=== PATIENT | male | born 1965 | race Caucasian/White ===

== ENCOUNTER 2021-07-31 09:02 | Outpatient (CLI) | payer BC, SELFPAY ==
[2021-07-31 09:33] LABS: Basophils Percent Auto 0.5 % (0.2-1.2); Eosinophils Absolute Auto 0.1 K/mm3 (0-0.3); Eosinophils Percent Auto 1.8 % (0-4.4); Hematocrit 44.9 % (42.0-52.0); Hemoglobin 15.2 g/dL (14.0-18.0); Immature Granulocyte Absolute 0.05 K/mm3 (0.00-0.031); Immature Granulocyte Percent A 0.7 % (0-0.5); Lymphocytes Absolute Auto 1.45 K/mm3 (0.9-3.2); Lymphocytes Percent Auto 18.9 % (18.3-44.2); Mean Corpuscular HGB Conc 33.9 g/dl (32-36); Mean Corpuscular Hemoglobin 30.8 pg (26-34); Mean Corpuscular Volume 91.1 fl (80-100); Mean Platelet Volume 9.3 fl (7.4-10.4); Monocytes Absolute Auto 0.6 K/mm3 (0.1-0.6); Monocytes Percent Auto 8.3 % (2.6-8.5); Neutrophils Absolute Auto 5.4 K/mm3 (1.3-6.7); Neutrophils Percent Auto 69.8 % (45.5-73.1); Platelet Count Result 261 k/mm3 (150-375); Red Blood Count 4.93 M/mm3 (4.6-6.20); Red Cell Distribution Width 12.2 % (11.5-14.5); White Blood Count 7.7 K/mm3 (4.5-10.0)
[2021-07-31 10:05] LABS: Alanine Aminotransferase 26 U/L (4-50); Albumin Level 4.1 g/dL (3.5-5.1); Alkaline Phosphatase 63 U/L (38-126); Anion Gap 6 mmol/L (8-16); Aspartate Amino Transferase 22 U/L (17-59); Bilirubin,Total 0.5 mg/dL (0.2-1.3); Blood Urea Nitrogen 18 mg/dL (9-20); Calcium 8.9 mg/dL (8.4-10.2); Carbon Dioxide 27 mmol/L (22-30); Chloride 106 mmol/L (98-107); Cholesterol 175 mg/dL (0-200); Estimated Glomerular Filt Rate > 60; Glucose 110 mg/dL (65-110); HDL Direct 34 mg/dL; Potassium 4.4 mmol/L (3.4-5.0); Sodium 139 mmol/L (137-145); Triglycerides 130 mg/dL (<150)
[2021-07-31 10:16] LABS: LDL Cholesterol Direct 95 mg/dL
[2021-07-31 10:37] LABS: Prostate Specific Antigen 0.8 ng/mL (< OR = 4.0)
== END 2021-07-31 09:03 | disposition home or self-care (01) ==
LOC: ANHLAB 09:04
PROVIDERS: PCP Internal Medicine; Visit Provider Nurse Practitioner
DX: Z13.228 Encounter for screening for other metabolic disorders (principal); Z12.5 Encounter for screening for malignant neoplasm of prostate; Z13.220 Encounter for screening for lipoid disorders
CPT/HCPCS: 36415; 80053; 80061; 84153; 85025; G0103

== ENCOUNTER → 2021-08-18 14:02 | Outpatient (CLI) | payer BC, SELFPAY ==
--- NOTE | ~2021-08-18 | US_ITS ---
EXAMINATION: US soft tissue UE LT DATE: 08/18/2021 14:23 INDICATION: Localized swelling, mass and lump posterior to the proximal left ulna of one-month durati on TECHNIQUE: Multiple grayscale and Doppler ultrasound images of the region of concern posterior to the proximal left forearm were obtained. COMPARISON: None FINDINGS: There is a small loculated complex fluid collection along the posterior margin of the proximal ulna w hich measures approximately 3.5 cm medial to lateral and up to 4 mm in maximal thickness although gen erally tender throughout the majority of the collection. This measures up to 2.0 cm proximal to dista l on the single provided sagittal plane image. There is an irregular margin with small hypoechoic reg ions likely representing synovitis within the anechoic fluid. Location and appearance would be most c onsistent with olecranon bursitis. No other abnormal masses identified. IMPRESSION: 1. 3.5 x 0.4 x 2.0 cm loculated complex fluid collection posterior to the olecranon most consistent w ith olecranon bursitis. Reviewed, dictated and finalized at location A. IMPRESSION: 1. 3.5 x 0.4 x 2.0 cm loculated complex fluid collection posterior to the olecr anon most consistent with olecranon bursitis.
== END ==
PROVIDERS: PCP Nurse Practitioner; Visit Provider Nurse Practitioner
DX: R22.9 Localized swelling, mass and lump, unspecified (principal)
CPT/HCPCS: 76882

== ENCOUNTER → 2021-09-30 00:08 | Outpatient (CLI) | payer BC, SELFPAY ==
[2021-09-30 17:30] LABS: SARS-CoV-2 RNA PCR Negative
== END ==
PROVIDERS: PCP Internal Medicine; Visit Provider Internal Medicine Gastroenterology
DX: Z01.812 Encounter for preprocedural laboratory examination (principal); Z20.822 Contact with and (suspected) exposure to COVID-19
CPT/HCPCS: C9803; U0003; U0005

== ENCOUNTER 2021-10-04 00:32 | Day surgery (SDC) | payer BC, SELFPAY ==
[2021-09-20 12:54] VITALS: BMI 34.5
--- NOTE | 2021-10-03 19:10 | PM.HPGS ---
History of Present Illness History of Present Illness Consent: Risks, benefits, and alternatives have been discussed and questions answered. Patient agrees to proceed with procedure. Chief complaint: hx of colon polyps, neoplasm screening Narrative: Sudheer Lorenzana is a 55 year old male with a history of polyps, referred for screening colonoscopy Review of Systems Review of Systems: All systems reviewed & are unremarkable except as noted in HPI and below PMFSH Past Medical History Medical History Body mass index (BMI) 45.0-49.9, adult Cholecystitis Depression GERD (gastroesophageal reflux disease) Headache Insomnia VINCENZO (obstructive sleep apnea) Testicular hypofunction TMJ click Surgical History Surgical History H/O colonoscopy with polypectomy Family History Family History Mother Cerebrovascular accident Father No problems noted. Social History Social History Smoking status: Former smoker Alcohol intake: former Substance use: never Substance use type: does not use Living arrangements: with family Spiritual care concerns: No Meds Home Medications and Allergies Home Medications Medication Instructions Recorded Confirmed Type clonazepam 1 mg tablet 1 mg PO DAILY 08/25/20 10/04/21 History zolpidem 10 mg tablet 10 mg PO .QHS PRN tablet 08/25/20 10/04/21 History duloxetine 20 mg PO DAILY 09/20/21 10/04/21 History Allergies Allergy/AdvReac Type Severity Reaction Status Date / Time No Known Allergies Allergy Verified 10/04/21 08:16 Exam Resp: Auscultation: clear to auscultation bilaterally Cardio: Rate: regular rate Rhythm: regular rhythm GI: GI Palp: Yes Soft to palpation and No Tenderness to palpation present (GI) Assessment and Plan Assessment and plan (1) Screening for colon cancer: Code(s): Z12.11 - Encounter for screening for malignant neoplasm of colon Status: Acute Assessment and Plan: Colonoscopy with possible biopsy or polypectomy or cautery or injection of substances.
[2021-10-04 08:17] VITALS: BP 123/84; PULSE 69; RESP 18; TEMP 36.3; O2SAT 97
[2021-10-04] MEDS: LACTATED RINGERS 1,000 ML 150 ML IV CONT (08:25)
--- NOTE | 2021-10-04 08:40 | WPDANESEPPF ---
Anes - Initial Pre Proc Eval Procedure: Operation Date: 10/04/21 09:30 Proposed Procedures p Screening Colonoscopy - Harpal Olvera MD Date/Time: 10/04/21 08:40 Surgeon: Harpal Olvera MD Pre Op Diagnosis: hx of colon polyps, neoplasm screening Patient Data Age: 55 Gender: M Height: 1.7 m Weight: 106.3 kg Last Vital Signs Temp 36.3 C L 10/04/21 08:17 Pulse 69 10/04/21 08:17 Resp 18 10/04/21 08:17 BP 123/84 10/04/21 08:17 Pulse Ox 97 10/04/21 08:17 Allergies Allergy/AdvReac Type Severity Reaction Status Date / Time No Known Allergies Allergy Verified 10/04/21 08:16 Home Medications Medication Instructions Recorded Confirmed Type clonazepam 1 mg tablet 1 mg PO DAILY 08/25/20 10/04/21 History zolpidem 10 mg tablet 10 mg PO .QHS PRN tablet 08/25/20 10/04/21 History duloxetine 20 mg PO DAILY 09/20/21 10/04/21 History Patient hx anesthesia problems: none Family hx anesthesia problems: none Results Review: All pre-operative results and documents have been reviewed as part of the pre-operative evaluation. [facility] [place] Past Medical History Medical History Body mass index (BMI) 45.0-49.9, adult Cholecystitis Depression GERD (gastroesophageal reflux disease) Headache Insomnia VINCENZO (obstructive sleep apnea) Testicular hypofunction TMJ click Surgical History Surgical History (Updated 10/04/21 @ 08:40 by Brendon Smallwood MD) H/O colonoscopy with polypectomy Family History Family History Mother Cerebrovascular accident Father No problems noted. Social History Social History Smoking status: Former smoker Alcohol intake: former Substance use: never Substance use type: does not use Living arrangements: with family Spiritual care concerns: No Anes - Eval Final PreProcedure Day of Procedure 10/04/21 08:40 Patient weight: obese Heart: regular rate and rhythm Lungs: clear to auscultation Airway: Mallampati scale class II Neurological: alert and oriented Last oral intake: >/= 8 hours ASA classification: III Emergent: no Anesthetic plan: proceed Anesthesia type and monitoring: general GIVS and standard monitoring Results Review: All pre-operative results and documents have been reviewed as part of the pre-operative evaluation. Informed Consent: The patient's anesthetic plan and its attendant risks and benefits were discussed with the patient/family/POA. Questions were solicited and answers provided to the satisfaction of the patient/family/POA.
[2021-10-04] MEDS: SIMETHICONE ORAL SUSPENSION 20 MG/0.3 ML 30 ML BOTTLE 0.6 ML IRRIGATION (09:38)
[2021-10-04 09:47] VITALS: BP 101/67; PULSE 63; RESP 16; O2SAT 96
[2021-10-04 09:57] VITALS: BP 115/78; PULSE 59; RESP 18; O2SAT 96
[2021-10-04 10:07] VITALS: BP 124/78; PULSE 67; RESP 22; O2SAT 98
== END 2021-10-04 10:15 | disposition home or self-care (01) ==
PROVIDERS: PCP Internal Medicine; Visit Provider Internal Medicine Gastroenterology
PROC: 0DJD8ZZ Inspection of Lower Intestinal Tract, Via Natural or Artificial Opening Endoscopic (ICD-10-PCS; CPT 45378; principal; 2021-10-04 09:30)
DX: Z12.11 Encounter for screening for malignant neoplasm of colon (principal); Z86.010 Personal history of colon polyps; F32.9 Major depressive disorder, single episode, unspecified; K21.9 Gastro-esophageal reflux disease without esophagitis; G47.00 Insomnia, unspecified; G47.33 Obstructive sleep apnea (adult) (pediatric); Z87.891 Personal history of nicotine dependence; E66.9 Obesity, unspecified; Z68.36 Body mass index [BMI] 36.0-36.9, adult
CPT/HCPCS: 45378; J2704; J7120

== ENCOUNTER 2022-10-03 08:53 | Outpatient (CLI) | payer BC, SELFPAY ==
[2022-10-03 19:54] LABS: Basophils Percent Auto 0.7 % (0.2-1.2); Eosinophils Absolute Auto 0.2 K/mm3 (0-0.3); Eosinophils Percent Auto 4.1 % (0-4.4); Hematocrit 45.6 % (42.0-52.0); Hemoglobin 15.4 g/dL (14.0-18.0); Immature Granulocyte Absolute 0.03 K/mm3 (0.00-0.031); Immature Granulocyte Percent A 0.5 % (0-0.5); Lymphocytes Absolute Auto 1.77 K/mm3 (0.9-3.2); Lymphocytes Percent Auto 31.8 % (18.3-44.2); Mean Corpuscular HGB Conc 33.8 g/dl (32-36); Mean Corpuscular Hemoglobin 31.6 pg (26-34); Mean Corpuscular Volume 93.6 fl (80-100); Mean Platelet Volume 9.7 fl (7.4-10.4); Monocytes Absolute Auto 0.6 K/mm3 (0.1-0.6); Monocytes Percent Auto 10.4 % (2.6-8.5); Neutrophils Absolute Auto 2.9 K/mm3 (1.3-6.7); Neutrophils Percent Auto 52.5 % (45.5-73.1); Platelet Count Result 260 k/mm3 (150-375); Red Blood Count 4.87 M/mm3 (4.6-6.20); Red Cell Distribution Width 12.7 % (11.5-14.5); White Blood Count 5.6 K/mm3 (4.5-10.0)
[2022-10-03 19:57] LABS: Alanine Aminotransferase 39 U/L (6-50); Albumin Level 4.1 g/dL (3.5-5.1); Alkaline Phosphatase 70 U/L (38-126); Anion Gap 10 mmol/L (8-16); Aspartate Amino Transferase 27 U/L (17-59); Bilirubin,Total 0.4 mg/dL (0.2-1.3); Blood Urea Nitrogen 15 mg/dL (9-20); Calcium 8.8 mg/dL (8.4-10.2); Carbon Dioxide 25 mmol/L (22-30); Chloride 103 mmol/L (98-107); Cholesterol 188 mg/dL (0-200); Estimated Glomerular Filt Rate > 60; Glucose 105 mg/dL (65-110); HDL Direct 36 mg/dL; Potassium 4.2 mmol/L (3.4-5.0); Sodium 138 mmol/L (137-145); Triglycerides 188 mg/dL (<150)
[2022-10-03 20:08] LABS: LDL Cholesterol Direct 114 mg/dL
[2022-10-03 20:10] LABS: Rheumatoid Factor < 8.6 IU/ML (<12)
[2022-10-03 20:25] LABS: Erythrocyte Sedimentation Rate 8 mm/hr (0-20)
[2022-10-08 20:54] LABS: ANA Cascade Screen Negative (Negative)
== END 2022-10-03 08:54 | disposition home or self-care (01) ==
LOC: ANHGOSHLAB 08:54
PROVIDERS: PCP Internal Medicine; Visit Provider Nurse Practitioner
DX: M25.50 Pain in unspecified joint (principal); Z12.5 Encounter for screening for malignant neoplasm of prostate; Z13.220 Encounter for screening for lipoid disorders; Z13.29 Encounter for screening for other suspected endocrine disorder
CPT/HCPCS: 36415; 80053; 80061; 84153; 84443; 85025; 85652; 86038; 86430; G0103

== ENCOUNTER 2022-11-14 08:03 | Outpatient (CLI) | payer BC, SELFPAY ==
--- NOTE | 2022-12-03 13:50 | WPDHOMESLEEP ---
Sleep Study - Home Unattended Date of Study: 11/14/22 Ordering Provider: Nabila Kimball NP Interpreting Provider: Kim Whitney, DO Home Sleep Study Type: Watch PAT Height: 1.7 m Weight: 108.862 kg Body Mass Index: 37.5 Neck Circumference (inches): 17.25 [place]: 19 Reason for Sleep Study Daytime hypersomnia Sleep History The patient is a 57-year-old male with depression, GERD, PTSD, testicular hypofunction, insomnia and history of tobacco use that had a sleep study ordered by his primary care for evaluation of sleep apnea. The patient occasionally awakens from sleep short of breath. He frequently awakens at night with heartburn, belching or cough. He rarely snores loud enough that others complain. He occasionally wakes up gasping for air throughout the night. He rarely has breathing problems at night observed by himself or others. He occasionally sweats excessively at night. He occasionally has heart palpitations or irregular heartbeats during the night. He constantly falls asleep during the day but rarely falls asleep while driving. he constantly experiences loss of muscle tone when extremely emotional. He constantly has trouble at school or work due to sleepiness. He occasionally feels unable to move while waking up or falling asleep. He occasionally experiences vivid dreamlike scenes upon awakening or falling asleep. He constantly feels afraid of going to sleep. He rarely has nightmares. He never remembers his dreams. He constantly has thoughts racing through his mind. He constantly feels sad, depressed and anxious. He constantly has muscular tension. He constantly notices parts of his body jerk. He constantly kicks during the night. He constantly has crawling and aching feelings in his legs and frequently has leg pain during the night. He goes to bed at 10:00 p.m. on both weekdays and weekends. It takes him 1-3 hours to fall asleep. He wakes up 2-3 times throughout the night to urinate. He can take him up to an hour to fall back asleep. He wakes up at 3:30 a.m. on weekdays and at 5:00 a.m. on the weekends. He does not stay in bed after waking up in the morning. He currently lives with his . He does not consume any caffeinated beverages within 2 hours of bedtime. He does not engage in physical exercise before bedtime. He will read and watch television before falling asleep. He denies taking naps in the afternoon or the evening. He drinks 1 cup of caffeinated beverage in the morning. He is a former smoker. He denies alcohol and recreational drug use. [facility] Past Medical History Medical History Body mass index (BMI) 45.0-49.9, adult Cholecystitis Depression GERD (gastroesophageal reflux disease) Headache Insomnia VINCENZO (obstructive sleep apnea) PTSD (post-traumatic stress disorder) Testicular hypofunction TMJ click Surgical History Surgical History H/O colonoscopy with polypectomy Family History Family History Mother Cerebrovascular accident Father No problems noted. Social History Social History Smoking status: Former smoker Alcohol intake: former Substance use: never Substance use type: does not use Spiritual care concerns: No Medications Home Medications Medication Instructions Recorded Confirmed Type bupropion HCl 300 mg 24 hr tablet, 300 mg PO DAILY 09/25/22 History extended release clonazepam 1 mg tablet 1 mg PO DAILY PRN 09/25/22 History lamotrigine 100 mg tablet 100 mg PO DAILY 09/25/22 History naproxen 500 mg tablet 500 mg PO BID 09/25/22 History zolpidem 10 mg tablet 10 mg PO QHS 09/25/22 History Sleep Procedure The sleep study was completed using [employer] a technically adequate device with seven channels: per
[2022-12-03 14:03] VITALS: BMI 37.5
== END 2022-11-15 12:04 | disposition home or self-care (01) ==
LOC: ANHCSM 08:06
PROVIDERS: PCP Internal Medicine; Visit Provider Nurse Practitioner
DX: G47.10 Hypersomnia, unspecified (principal); G47.9 Sleep disorder, unspecified
CPT/HCPCS: 95800

== ENCOUNTER 2023-01-09 08:24 | Outpatient (CLI) | payer BC, SELFPAY ==
--- NOTE | 2023-01-29 12:00 | WPDSLEEPSTUD ---
Sleep Study Date of Study: 01/09/23 Ordering Provider: Nabila Kimball NP Interpreting Physician: Kim Whitney DO Sleep Study Type: Polysomnogram Height: 1.7 m Weight: 240 kg Body Mass Index: 82.8 Neck Circumference (inches): 17.5 [place]: 19 Reason for Sleep Study The patient had an HSAT on 11/14/2022 that showed an AHI of 3.6 and an RDI of 9.6. Recommended in lab study due to discrepancy. Sleep History The patient is a 57-year-old male with depression, GERD, PTSD, testicular hypofunction, insomnia and history of tobacco use that had a sleep study ordered by his primary care for evaluation of sleep apnea.? The patient occasionally awakens from sleep short of breath.? He frequently awakens at night with heartburn, belching or cough.? He rarely snores loud enough that others complain.? He occasionally wakes up gasping for air throughout the night.? He rarely has breathing problems at night observed by himself or others.? He occasionally sweats excessively at night.? He occasionally has heart palpitations or irregular heartbeats during the night.? He constantly falls asleep during the day but rarely falls asleep while driving. he constantly experiences loss of muscle tone when extremely emotional.? He constantly has trouble at school or work due to sleepiness.? He occasionally feels unable to move while waking up or falling asleep.? He occasionally experiences vivid dreamlike scenes upon awakening or falling asleep.? He constantly feels afraid of going to sleep.? He rarely has nightmares.? He never remembers his dreams.? He constantly has thoughts racing through his mind.? He constantly feels sad, depressed and anxious.? He constantly has muscular tension.? He constantly notices parts of his body jerk.? He constantly kicks during the night.? He constantly has crawling and aching feelings in his legs and frequently has leg pain during the night. He goes to bed at 10:00 p.m. on both weekdays and weekends.? It takes him 1-3 hours to fall asleep.? He wakes up 2-3 times throughout the night to urinate.? He can take him up to an hour to fall back asleep.? He wakes up at 3:30 a.m. on weekdays and at 5:00 a.m. on the weekends.? He does not stay in bed after waking up in the morning.? He currently lives with his .? He does not consume any caffeinated beverages within 2 hours of bedtime.? He does not engage in physical exercise before bedtime.? He will read and watch television before falling asleep.? He denies taking naps in the afternoon or the evening.? He drinks 1 cup of caffeinated beverage in the morning.? He is a former smoker.? He denies alcohol and recreational drug use. [facility] Past Medical History Medical History Body mass index (BMI) 45.0-49.9, adult Cholecystitis Depression GERD (gastroesophageal reflux disease) Headache Insomnia VINCENZO (obstructive sleep apnea) PTSD (post-traumatic stress disorder) Testicular hypofunction TMJ click Surgical History Surgical History H/O colonoscopy with polypectomy Family History Family History Mother Cerebrovascular accident Father No problems noted. Social History Social History Smoking status: Former smoker Alcohol intake: former Substance use: never Substance use type: does not use Lack of Transportation: No Lack of Food: Never True Current Housing: I Have Housing Concerned About Future Housing: No Difficulty Paying Gas/Electric Bills: No Difficulty Paying for Meds: No Currently Unemployed: No Education: High School Diploma/GED Difficulty w/ Childcare or Family Care: No Living arrangements: with family Spiritual care concerns: No Medications Home Medications Medication Instructions Recorded Confirmed Type bupr
[2023-01-29 12:15] VITALS: BMI 82.8
== END 2023-01-10 06:19 | disposition home or self-care (01) ==
LOC: ANHCSM 08:25
PROVIDERS: PCP Internal Medicine; Visit Provider Nurse Practitioner
DX: G47.33 Obstructive sleep apnea (adult) (pediatric) (principal); G47.61 Periodic limb movement disorder
CPT/HCPCS: 95810

== ENCOUNTER 2023-05-20 08:08 | Outpatient (CLI) | payer BC, SELFPAY | END 2023-05-20 08:09 | disposition home or self-care (01) | LOC: ANHGOSHPT 08:10 → ANHGOSHLAB 08:16 | PROVIDERS: PCP Internal Medicine; Visit Provider Nurse Practitioner | DX: G47.61 Periodic limb movement disorder (principal) | CPT/HCPCS: 36415; 82728 ==

== ENCOUNTER 2024-08-27 12:14 | Outpatient (CLI) | payer BC, SELFPAY ==
[2024-08-27 12:33] LABS: Basophils Absolute Auto 0.1 K/mm3 (0.0-0.1); Basophils Percent Auto 0.7 % (0.2-1.2); Eosinophils Absolute Auto 0.2 K/mm3 (0-0.3); Eosinophils Percent Auto 3.4 % (0-4.4); Immature Granulocyte Absolute 0.04 K/mm3 (0.00-0.031); Immature Granulocyte Percent A 0.6 % (0-0.5); Lymphocytes Absolute Auto 1.93 K/mm3 (0.9-3.2); Mean Corpuscular HGB Conc 34.8 g/dl (32-36); Mean Corpuscular Hemoglobin 31.9 pg (26-34); Mean Corpuscular Volume 91.8 fl (80-100); Mean Platelet Volume 9.3 fl (7.4-10.4); Monocytes Absolute Auto 0.6 K/mm3 (0.1-0.6); Monocytes Percent Auto 8.4 % (2.6-8.5); Neutrophils Absolute Auto 4.3 K/mm3 (1.3-6.7); Neutrophils Percent Auto 59.9 % (45.5-73.1); Platelet Count Result 266 k/mm3 (150-375); Red Blood Count 5.01 M/mm3 (4.6-6.20); Red Cell Distribution Width 12.2 % (11.5-14.5); White Blood Count 7.1 K/mm3 (4.5-10.0)
[2024-08-27 12:48] LABS: Alanine Aminotransferase 30 U/L (6-50); Albumin Level 4.4 g/dL (3.5-5.1); Alkaline Phosphatase 67 U/L (38-126); Anion Gap 7 mmol/L (4-12); Aspartate Amino Transferase 27 U/L (17-59); Bilirubin,Total 0.7 mg/dL (0.2-1.3); Blood Urea Nitrogen 15 mg/dL (9-20); Calcium 8.8 mg/dL (8.4-10.2); Carbon Dioxide 27 mmol/L (22-30); Chloride 103 mmol/L (98-107); Cholesterol 215 mg/dL (0-200); Estimated Glomerular Filt Rate > 60; Glucose 99 mg/dL (65-110); HDL Direct 42 mg/dL; Potassium 4.2 mmol/L (3.4-5.0); Sodium 137 mmol/L (137-145); Triglycerides 266 mg/dL (<150)
[2024-08-27 12:59] LABS: LDL Cholesterol Direct 118 mg/dL
[2024-08-27 13:17] LABS: Prostate Specific Antigen 1.9 ng/mL (< OR = 4.0)
== END 2024-08-27 12:15 | disposition home or self-care (01) ==
LOC: ANHLAB 12:17
PROVIDERS: PCP Internal Medicine; Visit Provider Nurse Practitioner
DX: Z13.29 Encounter for screening for other suspected endocrine disorder (principal); Z13.220 Encounter for screening for lipoid disorders; Z12.5 Encounter for screening for malignant neoplasm of prostate
CPT/HCPCS: 36415; 80053; 80061; 84153; 85025; G0103

== ENCOUNTER 2025-02-16 13:02 | Outpatient (CLI) | payer BC, SELFPAY ==
--- OUTSIDE RECORDS SUMMARY | 2025-02-16 14:11 | XMS_ITS | Encounter Summary ---
Author Name [facility] Address [address] [place] [address] Care Team Providers Care Director Of Retail Marketing Name Role Phone IDALIA WESTON Primary Care Provider Unavailabl e Insurance Providers: All historical and current Section Date Range: From patient's date of to the date document was created. This section includes the names of all active insurance providers for the patient. Insurance Provider Type of Coverage Plan Name Start of Policy Coverage End of Policy Coverage Group Number Member ID Insurance Provider's Telephone Number Policy Sinclair's Name Patient's Relationship to Policy Sinclair [place] PREFERRED PROVIDER ORGANIZAT [place]ON (PPO) [place] 2022 [id number] [phone] GILBERTKERRIE PATIENT [place] PREFERRED PROVIDER ORGANIZAT ION (PPO) [place] 2022 [id number] [phone] GIL[place]ERT[place]RI[place] PATIENT [place] PREFERRED PROVIDER ORGANIZAT ION (PPO) [place] 2022 [id number] [phone] [place] PATIENT [place] PREFERRED PROVIDER ORGANIZAT ION (PPO) [place] 2022 [id number] [phone] KERRIE HUNT PATIENT [employer]) PRESCRIPT ION REP WAGE 2004 [id number] [phone] KERRIE HUNT PATIENT [employer]) PRESCRIPT ION RX PLAN 2004 [id number] [phone] KERRIE HUNT PATIENT Selected Encounter This section includes the information on record at [place] for the Encounter. Date/Time Encounter Type Encounter Description Reason Provider Source Jun 25, 2024 10:00 AM OFFICE O/P EST MOD 30 MIN [facility] - IND ICD-10-CM F43.12 Post-traumatic stress disorder, chronic MARQUISE WOLF [facility] Encounter Template Text not used by [place] Assessments - Encounter Diagnoses This section includes the primary and secondary diagnoses documented for the Encounter. Date/Time Primary/Secondary Diagnosis Diagnosis Name Provider Source Jun 25, 2024 10:23 AM PRIMARY [facility]-traumatic stress [facility], [facility]ha [facility] Jun 25, 2024 10:23 AM SECONDARY Alcohol abuse, in remission [facility] Jun 25, 2024 10:23 AM SECONDARY Generalized anxiety disorder [facility] Jun 25, 2024 10:23 AM SECONDARY Major depressive disorder, single episode, unspecified [facility] Plan of Treatment: Future Appointments (+ 6 months) and Future Tests (+/- 45 days) The Plan of Treatment section includes future care activities for the patient from all [place] treatmentfacilities. This section includes future appointments and future orders which are active, pending or scheduled. Future Appointments This section includes appointments that were scheduled to occur 6 months from the date of the Encounter, up to a maximum of 20 appointments. The data comes from all [place] treatment facilities. Appointment Date/Time Appointment Type Appointme nt Facility Name Dec 03, 2024 10:00 AM AMBULATORY - PSYCHIATRY [facility] Active, Pending, and Scheduled Orders This section includes a listing of several types of active, pending, and scheduled orders, including clinic medications orders, diagnostic test orders, procedure orders and consult orders; where the start date of the order is 45 days before the date of the Encounter or 45 days after the date of theEncounter. The data comes from all [place] treatment facilities. Test Date/Time Test Type Test Details Facility Name Jun 22, 2024 12:00 AM Laboratory - Chemi stry Order TESTOSTERONE, FREE PANEL RED/NO-GEL SERUM SP [facility] Jun 22, 2024 12:00 AM Laboratory - Chemi stry Order CBC BLOOD [facility] Jun 22, 2024 12:00 AM Laboratory - Chemi stry Order PROST. SPECIFIC AG.(PB-STL) GOLD/RED SST SERUM [facility] Jun 25, 2024 12:00 AM Laboratory - Chemi stry Order URINE DRUG SCREEN (STL) URINE YELLOW SP [facility] Encounter Notes: All associated encounter notes This section contains the clinical notes associated to the Encounter. Date/Time Encounter Note(s) Provider Source Jun 25, 2024 10:12 AM PSYCHIATRY NOTE: LOCAL TITLE: PSYCHIATRY STL STANDARD TITLE: PSYCHIATRY NOTE DATE OF NOTE: JUN 25, 2024@10:12 ENTRY DATE: JUN 25, 2024@10:12:51 AUTHOR: MARQUISE WOLF EXP COSIGNER: URGENCY: STATUS: COMPLETED PSYCHIATRY STL Has ADDENDA [facility] Psychiatry Progress Note - Medication Management JUN 25, 2024 IDENTIFYING INFORMATION Name..................YANI HUNT Age...................58 Sex...................MALE SSN...................[id number] Service Connection.... Service Connected: 50% Rated Disabilities: POST-TRAUMATIC STRESS DISORDER (50% SC) EMMANUEL HUNT is a , unemployed, domiciled, male [employer] with a history most consistent with posttraumatic stress disorder, major depressive disorder, generalized anxiety disorder, and alcohol use disorder (in remission). There has also been past history of opioid dependence, although not opioid use disorder. His history is confounded by a medical history of obesity, GERD, polyarthralgia, low testosterone, and low vitamin D. Previous psychiatric notes, medical notes, and medication history have been reviewed. This appointment was conducted by clinical video telehealth. Telehealth Consent: [place] verbally consented to a clinical video telehealth follow-up appointment. Address: [address] [place] [address] (work) Phone number: Survey: Patient alone Lock: The virtual conference room was locked. 1) Obesity 2) Polyp of colon 3) Primary insomnia 4) Gastroesophageal reflux disease 5) Posttraumatic stress disorder 6) Polyarthralgia 7) Major depressive disorder 8) Generalized anxiety disorder 9) History of alcohol abuse 10) Opioid dependence in remission 11) Exposure to potentially hazardous substance Active Outpatient Medications (including Supplies): Active Outpatient Medications Status 1) FLUTICASONE PROP 50MCG 120D NASAL INHL INSTILL 1 ACTIVE SPRAY IN NOSTRIL(S) ONCE A DAY (MUST BE USED DIRECTED FOR MINIMUM OF 21 DAYS TO PROVIDE ADEQUATE BENEFITS) 2) NAPROXEN 500MG TAB TAKE ONE TABLET BY MOUTH TWICE ACTIVE DAILY NEEDED FOR PAIN AND/OR INFLAMMATION. TAKE WITH FOOD. 3) SILDENAFIL CITRATE 100MG TAB TAKE ONE TABLET BY MOUTH ACTIVE (S) TWO TIMES PER WEEK NEEDED FOR ERECTILE DYSFUNCTION (TAKE 60 MINUTES PRIOR TO SEXUAL ACTIVITY) - LIMIT 6 DOSES PER 30 DAYS 90 DAY SUPPLY 4) TESTOSTERONE 1.62% 20.25MG/PUMP TOP GEL APPLY 2 PUMPS ACTIVE (40.5MG) TO AFFECTED AREA(S) ONCE A DAY FOR LOW TESTOSTERONE APPLY TO CLEAN DRY SKIN OF UPPER ARMS OR UPPER SHOULDER ONLY 5) ZOLPIDEM TARTRATE 12.5MG SA TAB TAKE ONE TABLET BY ACTIVE MOUTH AT BEDTIME NEEDED No medications found. The medication list has been reviewed. Allergies: Patient has answered NKA VITAL SIGNS: Height: 68 in [172.7 cm] (06/22/2024 10:49) Weight: 234.2 lb [106.23 kg] (06/22/2024 11:04) BMI: 35.7 Temperature: 98.3 F [36.8 C] (06/22/2024 11:04) Blood Pressure: 131/86 (06/22/2024 11:04) Pulse: 72 (06/22/2024 11:04) Respirations: 18 (06/22/2024 11:04) Patient Weight History - Last Four 1. 234.2 lbs. / 106.2 kg. on JUN 22, 2024@11:04:33 2. 234.2 lbs. / 106.2 kg. on JUN 22, 2024@10:49:05 3. 246.6 lbs. / 111.9 kg. on DEC 11, 2023@10:10:07 4. 245.5 lbs. / 111.4 kg. on JUL 16, 2023@11:02:53 INTERVAL HISTORY Per last visit: 03/04/2024 Today, insomnia appears unimproved with sustained-release zolpidem. However, he appears to be tolerating it well with no noticeable side effects. Symptoms are also confounded by recent psychosocial stress regarding his [id number]'s health. We will increase zolpidem at this time. He is also considering/discussing Spravato/TMS for depression with his private psychiatrist. He plans to move all of his mental health care to the [place] soon. Compliance: *Zolpidem SR 12.5 mg nightly as needed: most nights Other providers: *Testosterone supplement: no Today: He says that he continues to have the blues at times, depending on psychosocial stressors. However, he feels that they do not stick around as long as before and is able to rationalize through his feelings more effectively. He reports that it has been over 5 months since he has had significant symptoms of depression. He continues to have some anxiety at night, but he has been working through a CBT for insomnia workbook and making use of YouTube resources to improve sleep maintenance. He describes physical aches and pains related to his work, but he denies other major medical changes or new medications. Since returning to work, he has lost about 25 pounds due to the increase in activity. He continues to eat about the same, including some night visits to the kitchen. However, he is awake and alert (i.e. not sleepwalking). He also reminds himself not to eat/snack at night. As previously mentioned, the symptoms do not appear worse since starting zolpidem. 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 He denies alcohol abuse (i.e. usually does not drink, socially/in moderation) and drug use. He continues to chew tobacco (i.e. 3-4 cans a month). Supportive Psychotherapy/Psychoeducation: *N/A Review of systems: Negative except where noted above. PAST PSYCHIATRIC HISTORY Initial consult: 12/18/2017 (Dr. Nava) Transfer of care to this provider: 01/14/2024 Mr. Hunt has described a long history of difficulty controlling anxiety and depression symptoms since around 1992. He has described episodes of persistent low mood lasting up to 2 months, occurring about 4 or 5 times a year, most consistent with major depressive disorder. Along with low mood, he has described anhedonia (e.g. motorcycle riding), hyperphagia, fatigue, poor concentration, and passive suicidal ideation. His taoist beliefs have precluded any preparatory behavior or active suicidal thoughts from developing. With regard to anxiety, he has described difficulty controlling worry regarding various areas of life (e.g. finances, economics, politics, marriage/relationship, children) leading to irritability, insomnia, poor concentration/focus, and restlessness. Overall depression/anxiety symptoms appear to have been exacerbated by his exposure to traumatic/disturbing content while in the [employer]. He has described recurrent symptoms consistent with posttraumatic stress disorder. He said that he was diagnosed around 2014, and he has a 50% service connection for this disorder. He has described intrusive symptoms (e.g. nightmares, intrusive memories triggered by certain smells), avoidance behaviors (e.g. certain movies/smells), mood/cognitive symptoms (e.g. anxiety, anger, distrust of others), and arousal symptoms (e.g. insomnia, hypervigilance). Finally, he has also described issues with alcohol and opiate use in the past. While opioid use followed a work-related injury and did not appear to meet criteria for opioid use disorder (i.e. only opioid dependence leading to increased amount and withdrawal symptoms when he stopped), it does appear that he has met criteria for alcohol use disorder. He described excessive alcohol use between 1982 and 2014 leading to negative emotional changes, relationship stress, and increased use/frequency. However, he denied any past legal, professional, or physical dependence issues (e.g. no withdrawal seizures or delirium tremens). Hospitalizations: *None Suicide attempts: *None Past medications: *Bupropion: Ordered as recently as 2022, up to 150 mg nightly, stopped around 10/2023, no clear benefit *Duloxetine: 20 mg to 60 mg daily ordered between 2017 and 2021 *Trazodone: 100 mg nightly to 300 mg nightly ordered between 2018 *Clonazepam: 0.5 mg nightly to 1 mg twice daily ordered between 2017 and 2021 *Temazepam: 30 mg nightly ordered between 2017 and 2019 Psychology: *Previously in marriage counseling OBJECTIVE FINDINGS Vitals: see above Brief Physical Exam General: No acute distress Cardiopulmonary: Breathing room air with normal effort, no cyanosis appreciated Extremities: No gross abnormalities, moving upper extremities spontaneously Neurological: No gross focal deficits Skin: No obvious rashes or defects on exposed skin Mental Status Exam Appearance: White male, appears stated age, average build, fair hygiene/grooming, short/straight light brown hair (mildly unkempt), wearing appropriate work close and glasses Behavior towards examiner: cooperative, engaged, friendly Eye contact: Good Speech: unremarkable rate, volume, amount, and prosody Psychomotor: No psychomotor retardation/agitation appreciated Mood: Blues [intermittently] Affect: Euthymic/calm, reactive, mood congruent Thought Process: logical, linear, goal-directed Thought Content: Denies suicidal or homicidal ideation; no clear delusions appreciated on exam Perception: Denies active hallucinations; not clearly responding to internal stimuli Cognition: alert and oriented Fund of Knowledge: average Insight: good Judgement: good Labs: No new/relevant labs since last visit 12/11/2023 *CBC normal *Testosterone panel with low bioavailable (85.4), low sex hormone binding globulin (18), low free (43.3), and low total (221) 05/09/2023 *Hemoglobin A1c 5.8 *CMP with hyponatremia (134), low CO2 (19) 12/07/2022 *Prolactin normal *FSH normal *Luteinizing hormone normal 02/06/2022 *TSH normal *Vitamin B12 normal (595) *Vitamin D low (24.9) *Hep C nonreactive *INOCENCIO negative *Rheumatoid factor negative 02/07/2021 *Lipid panel normal Sleep Studies *Reports having 4 sleep studies in the private sector, reportedly with severe insomnia and REM deficiency, denied any clear diagnosis of obstructive sleep apnea *Reports [facility] S[facility] RISK ASSESSMENT Risk Factors for Suicide: *Recent psychosocial stressors *Access to lethal means *Psychological conditions/symptoms *Medical conditions and health-related problems *Preexisting risk factors (e.g. trauma) Protective Factors Against Suicide: *Access to and engagement with health care *Reports motivation for medical treatment *Access to and engagement with mental health care *Reports motivation for mental health treatment *Has meaningful family relationships (i.e. 2 sons) *Has a significant other *Hope for the future *Protective personal traits or beliefs (e.g. help seeking, beliefs against suicide, cognitive flexibility) *Reports taoist or spiritual beliefs/connections ([employer]) *Connections to cultural groups (e.g. ethnic, taoist, community) *Strong desire to live Risk Factors for Homicide: *Access to lethal means *History of violence Protective Factors Against Homicide: *Denial of intention to harm anyone *Absence of violent fantasies *Absence of accepting attitudes toward violence *Lack of preparatory behavior Overall: *Current/imminent risk of harm to self or others is low. *Chronic risk of harm to self or others is intermediate. *The does not meet criteria for involuntary commitment at this time but will benefit from ongoing outpatient mental health treatment. DIAGNOSTIC IMPRESSION DSM-5 Diagnoses: 1. Posttraumatic Stress Disorder 50% SC 2. Major Depressive Disorder, Recurrent, in remission (01/2024) 3. Generalized Anxiety Disorder 4. Alcohol Use Disorder, Mild, in Sustained Remission (2014) Today, he reports intermittent, mild, stress-induced low mood/anxiety that remains less disruptive/severe than in previous years. He is able to work through them and rationalize his feelings more effectively. He has lost about 25 pounds since becoming become more physically active at work. He is working on sleep hygiene, and it does appear that he is getting slightly more sleep than his last visit. He continues to report benefit from zolpidem, with no clear side effects (i.e. kitchen visits at night predate medication; no sleepwalking reported). He is comfortable continuing his current dose while continuing to improve symptoms with behavioral/lifestyle approaches. TREATMENT PLAN Medications: *Zolpidem SA 12.5 mg nightly as needed *Started IR around 2019, trialed up to 10 mg (1.5 hours) *Last increased 02/2024, beneficial (6 hours) Other providers: *Receiving testosterone supplementation, not currently taking Referrals, Labs, and Imaging: *Urine drug screen, reminded *Previously discussed TMS/Spravato Lifestyle: *Taking vitamin D supplement Return to Clinic: *5 months, or sooner if needed REMINDERS Last mental health treatment plan created/renewed..... N/A Last C-SSRS (this provider) .......................... 01/14/2024 Last seen on site.......................... ........... 01/14/2024 PDMP reviewed...................... ................... 03/04/2024 INSTRUCTIONS GIVEN TO PATIENT/FAMILY *Report medication side effects promptly *No alcohol/illicit drug use with medication *Exercise caution with driving/use of machinery *Monitor for sedation with use of the medication and if needed avoid use in situations where decreased level of alertness could potentially be dangerous *Follow up with Primary Care Provider *If symptoms get worse, call clinic or Emergency Room as appropriate *Provided orientation to the inter-disciplinary team and ways to access crisis/emergency care CONSENT We have discussed alternatives to treatment, including no treatment, as well as risks, benefits, side effects. The patient/guardian understood and consented to treatment provided. The patient is aware to call clinic or the emergency room as appropriate if symptoms get worse or if they experience side effects from medications. BILLING Supportive psychotherapy/psychoeducation: N/A Time spent in encounter (chart review, interview, documentation/orders): 24 min /lu/ MARQUISE WOLF Staff Physician / Psychiatrist [facility] Signed: 06/25/2024 10:23 09/21/2024 ADDENDUM STATUS: COMPLETED Refilled the Zolpidem. Reviewd PDMP and previous notes. Providing cross coverage for Dr. Wolf. /lu/ ROBIN FELDMAN Staff PsychiatristFELECIA [facility] [place] Signed: 09/21/2024 20:36 MARQUISE WOLF [facility]
--- OUTSIDE RECORDS SUMMARY | 2025-02-16 14:11 | XMS_ITS ---
Author Name [facility] [facility] [place] [facility] [place] Address [address] [place] [address] Care Team Providers Care Regional Sales Director Name Role Phone IDALIA WESTON Primary Care [...] ION (PPO) [employer] [place] 2022 [id number] [phone] GILBERTKERRIE PATIENT AN[employer]M [employer] [place] PREFERRED PROVIDER ORGANIZAT ION (PPO) [employer] [place] N 2022 [id number] [phone] GILBERTKERRIE PATIENT AN[employer] [employer] [place] PREFERRED PROVIDER ORGANIZAT ION (PPO) [employer] [place] N 2022 [id number] [phone] GILBERTKERRIE PATIENT [employer] [place] PREFERRED PROVIDER ORGANIZAT ION (PPO) [employer] [place] 2022 [id number] [phone] KERRIE HUNT PATIENT [employer] PRESCRIPT ION REP WAGE 2004 [id number] [phone] KERRIE HUNT PATIENT [employer] PRESCRIPT ION RX PLAN 2004 [id number] [id number] [phone] KERRIE HUNT PATIENT Selected Encounter This section includes the [place] on [place] at [place] for [place]. Date/Time Encounter Type Encounter Description Reason Provider Source Mar 04, 2024 10:00 AM OFFICE O/P EST HI 40 [facility] - IND ICD-10-CM F43.12 Post-traumatic stress disorder, chronic LUCIANOMARQUISE Radha [facility] Encounter Template Text not used by [place] Assessments - Encounter Diagnoses This section includes the primary and secondary diagnoses documented for the Encounter. Date/Time Primary/Secondary Diagnosis Diagnosis Name Provider Source Mar 04, 2024 10:37 AM PRIMARY Post-traumatic stress disorder, chronic [facility] Radha [facility] Mar 04, 2024 10:37 AM SECONDARY Alcohol abuse, in remission [facility] Mar 04, 2024 10:37 AM SECONDARY Generalized anxiety disorder [facility] Mar 04, 2024 10:37 AM SECONDARY Major depressive disorder, single episode, unspecified [facility] Plan of Treatment: Future Appointments (+ 6 months) and Future Tests (+/- 45 days) The Plan of Treatment section includes future care activities for the patient from all [place] treatmentfacilities. This section includes future appointments and future orders which are active, pending or scheduled. Future Appointments This section includes appointments that were scheduled to occur 6 months from the date of the Encounter, up to a maximum of 20 appointments. The data comes from all [place] treatment facilities. Appointment Date/Time Appointment Type Appointme nt Facility Name April 02, 2024 11:00 AM [facility] Jun 22, 2024 11:00 AM [facility] - MEDICINE [facility] Jun 25, 2024 10:00 AM AMBULATORY - PSYCHIATRY [facility] Encounter Notes: All associated encounter notes This section contains the clinical notes associated to the Encounter. Date/Time Encounter Note(s) Provider Source Mar 04, 2024 10:26 AM PSYCHIATRY NOTE: LOCAL TITLE: PSYCHIATRY [facility] STANDARD TITLE: PSYCHIATRY NOTE DATE OF NOTE: MAR 04, 2024@10:26 ENTRY DATE: MAR 04, 2024@10:26:52 AUTHOR: MARQUISE WOLF COSIGNER: URGENCY: STATUS: COMPLETED PSYCHIATRY [facility] Has [facility] Psychiatry Progress Note - Medication Management MAR 04, 2024 IDENTIFYING INFORMATION Name..................GILBERTYANISesar ROBISON A Age...................58 Sex...................MALE SSN...................[id number] Service Connection.... Service Connected: 50% Rated Disabilities: POST-TRAUMATIC STRESS DISORDER (50% SC) EMMANUEL HUNT is a , unemployed, domiciled, male [employer] with a history most consistent with posttraumatic stress disorder, major depressive disorder, generalized anxiety disorder, and alcohol use disorder (in remission). There has also been past history of opioid dependence, although not opioid use disorder. His history is confounded by a medical history of obesity, GERD, polyarthralgia, low testosterone, and vitamin D deficiency. Previous psychiatric notes, medical notes, and medication history have been reviewed. This appointment was conducted by clinical video telehealth. Telehealth Consent: verbally consented to a clinical telehealth follow-up appointment. Address: [address] [place] [address] Phone number: Survey: Patient alone Lock: The virtual conference room was locked. Audio only, video not working. 1) Obesity 2) Polyp of colon 3) [...] OF UPPER ARMS OR UPPER SHOULDER ONLY Pending Outpatient Medications Status 1) ZOLPIDEM TARTRATE 12.5MG SA TAB TAKE ONE TABLET BY PENDING MOUTH AT BEDTIME NEEDED 5 Total Medications No medications found. The medication list has been reviewed. Allergies: Patient has answered NKA VITAL SIGNS: Height: 68 in [172.7 cm] (02/06/2022 11:02) Weight: 246.6 lb [111.86 kg] (12/11/2023 10:10) BMI: 37.6 Temperature: 97.6 F [36.4 C] (12/11/2023 10:10) Blood Pressure: 120/79 (12/11/2023 10:10) Pulse: 85 (12/11/2023 10:10) Respirations: 18 (12/11/2023 10:10) Patient Weight History - Last Four 1. 246.6 lbs. / 111.9 kg. on DEC 11, 2023@10:10:07 2. 245.5 lbs. / 111.4 kg. on JUL 16, 2023@11:02:53 3. 253.0 lbs. / 114.8 kg. on JUN 11, 2023@15:10:14 4. 253.0 lbs. / 114.8 kg. on MAY 09, 2023@11:04:11 INTERVAL HISTORY Per last visit: 01/14/2024 Transfer of provider note (i.e. new to this provider), see note for full details. The plan included changing zolpidem to SR 6.25 mg nightly as needed. Patient had discontinued bupropion months prior. Of note, per PDMP, it appears that he was also receiving Spravato. Today: He says that he has been feeling the same after starting the extended release zolpidem. He feels that the instant release benefited him sooner as well. He typically falls asleep between 11 PM and midnight but wakes up around 3 AM. Frequently he will get out of bed for the day at that time. If so, he will then take a 1.5-hour nap around 10:30 AM. He denies any lingering grogginess or side effects from the extended release zolpidem. He does continue to wake up at night due to back/muscle tension/pain. Symptoms are also confounded by recent psychosocial stress regarding his mother-in- law's health. He denies significant/uncontrolled depression currently, however, because he is helping take care of others. He continues to have fatigue and poor motivation for exercise. He tries to eat healthy food, but continues to struggle with his weight. He does not report suicidal ideation, homicidal ideation, or hallucinations. He denies alcohol abuse (i.e. usually does not drink, recently had one half of a napoleon when eating out) and drug use. He continues to chew tobacco (i.e. 3-4 cans a month). Compliance: *Zolpidem SR 6.25 mg nightly as needed: yes Other providers: *Testosterone supplement *He is also discussing Spravato/TMS with his private psychiatrist (note: [place]) Supportive Psychotherapy/Psychoeducation: *N/A Review of systems: Negative [...] poor concentration, and passive suicidal ideation. His judaism beliefs have precluded any preparatory behavior or active suicidal thoughts from developing. With regard to anxiety, he has described difficulty controlling worry regarding various areas of life (e.g. finances, economics, politics, marriage/relationship, children) leading to irritability, insomnia, poor concentration/focus, and restlessness. Overall depression/anxiety symptoms appear to have been exacerbated by his exposure to traumatic/disturbing content while in the [employer]. He has described recurrent symptoms consistent with [...] FINDINGS Vitals: see above Brief Physical Exam *Unable to assess Mental Status Exam Appearance: Unable to assess Behavior towards examiner: cooperative, engaged, friendly Eye contact: Unable to assess Speech: unremarkable rate, volume, amount, and prosody Psychomotor: Unable to assess Mood: The same Affect: Unable to assess Thought Process: logical, linear, goal-directed Thought Content: Does not report suicidal or homicidal ideation; no clear delusions appreciated on exam Perception: Does not describe active hallucinations Cognition: alert and oriented Fund of Knowledge: [...] seeking, beliefs against suicide, cognitive flexibility) *Reports judaism or spiritual beliefs/connections (Buddhism) *Connections to cultural groups (e.g. ethnic, judaism, community) *Strong desire to live Risk Factors [...] Disorder 50% SC 2. Major Depressive Disorder, Recurrent 3. Generalized Anxiety Disorder 4. Alcohol Use Disorder, Mild, in Sustained Remission (2014) Today, insomnia appears unimproved with sustained-release zolpidem. However, he appears to be tolerating it well with no noticeable side effects. Symptoms are also confounded by recent psychosocial stress regarding his [id number]'s health. We will increase zolpidem at this time. He is also considering/discussing Spravato/TMS for depression with his private psychiatrist. [place] TREATMENT PLAN Medications: *Increase zolpidem SA 12.5 mg nightly as needed *Started IR around 2019, trialed up to 10 mg (1.5 hours benefit) Other providers: *Receiving testosterone supplementation Referrals, Labs, and Imaging: *Urine drug screen, reminded *Discussing Spravato/TMS with private psychiatrist Lifestyle: *Taking vitamin D supplement Return to Clinic: *1 month REMINDERS Last mental health treatment plan created/renewed..... [...] spent in encounter (chart review, interview, documentation/orders): 38 min /lu/ MARQUISE WOLF Staff Physician / Psychiatrist [facility] Signed: 03/04/2024 10:37 03/04/2024 ADDENDUM STATUS: COMPLETED Note regarding plan/discussion: We also discussed CBTinsomnia due to his chronic issues and poor response to medications. We will continue to optimize current medications and consider this as an option at future visits. Updated time in chart: *40 minutes /lu/ MARQUISE WOLF Staff Physician / Psychiatrist [facility] Signed: 03/04/2024 10:39 MARQUISE WOLF [facility] Mar 04, 2024 10:24 AM ACCOUNTING OF DISC LOSURES NOTE: LOCAL TITLE: STATE PRESCRIPTION DRUG MONITORING PROGRAM STANDARD TITLE: ACCOUNTING OF DISCLOSURES NOTE DATE OF NOTE: MAR 04, 2024@10:24:49 ENTRY DATE: MAR 04, 2024@10:24:49 AUTHOR: MARQUISE WOLF EXP COSIGNER: URGENCY: STATUS: COMPLETED This PDMP query was submitted by Marquise Wolf MD. The clinical justification for this PDMP query is to review controlled substances prescribed [facility] of [facility], and any additional information that may become available, as an important component of standard clinical care, and in accordance with [facility] policy. Patient information was shared with the PDMP [place]. No prescription(s) for controlled substances outside the [facility] were found in the last 90 days. 02/21/2024 1 01/14/2024 Zolpidem Tart Er 6.25 Mg Tab 30.00 30 Dora Luciano [id number] V a (6475) 1 /[place] 02/20/2024 1 01/02/2024 Testosterone 1.62% Gel Pump 1.00 30 Ke Bau [id number] V a (6475) 2 /[place] 01/22/2024 1 01/02/2024 Androgel 1.62% Gel Pump 1.00 30 Ke Bau [id number] V a (6475) 1 /[place] 01/17/2024 1 01/14/2024 Zolpidem Tart Er 6.25 Mg Tab 30.00 30 Dora Luciano [id number] V a (6475) 0 /[place] 01/09/2024 1 01/02/2024 Androgel 1.62% Gel Pump 1.00 30 Ke Bau [id number] V a (6475) 0 /[place] 12/19/2023 1 12/17/2023 Zolpidem Tartrate 10 Mg Tablet 30.00 30 La Kamryn [id number] V a (6475) 0 /[place] 12/05/2023 1 07/04/2023 Testosterone 1.62% Gel Pump 1.00 30 Ke Bau [id number] V a (6475) 5 /[place] /lu/ MARQUISE WOLF Staff Physician / Psychiatrist [facility] Signed: 03/04/2024 10:26 MARQUISE WOLF [facility]
--- OUTSIDE RECORDS SUMMARY | 2025-02-16 14:11 | XMS_ITS ---
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 Delusions: no Hallucinations: no
--- OUTSIDE RECORDS SUMMARY | 2025-02-16 14:11 | XMS_ITS | CONTINUITY OF CARE DOCUMENT ---
Author Name claudette wilkins Address Unknown Organization [facility] Address [id number] [place] [address] [address] [place] [address] Phone [phone] Care Team Providers Care Telephone Services Sales Representative Name Role Phone BRIGITTE MILTON, MARQUISE Unavailable [phone] INSURANCE PROVIDERS Payer name Policy type / Coverage type Wiley red democrat ID [facility] insurance company [id number]
--- OUTSIDE RECORDS SUMMARY | 2025-02-16 14:11 | XMS_ITS ---
Author Organization [facility] [employer] Address [address] [place] [address] Care Team Providers Care Machine Molder Squeeze Name Role Phone Jorge Mena DO Primary Care Provider Chet Zuniga Unavailable [phone] Allergies No Known Allergies REASON FOR VISIT FOLLOW UP, Depression screening positive Medications Medication SIG (Take, Route, Fr equency, Duration) Notes Start Date End Date Status Zolpidem Tartrate 10 MG 1 tablet at bedt zoe as needed Oral once a day for 30 days 02/15/2025 Active Testosterone 1.62 % Transdermal for 30 Days Active Social History Tobacco Use: Social History Observation Description Date Details (start date - stop date) Unknown Sex Assigned At : Social History Observation Description Sex Assigned At Female Tobacco Control (Standard) Question Answer Notes Tobacco use: Uses tobacco in other forms Vital Signs Blood pressure systolic 122 mm Hg 02/16/20 25 Blood pressure diastolic 87 mm Hg 025 Heart Rate 67 /min 02/15/2025 Height 67.00 in 02/15/2025 Weight 236 lbs 02/15/2025 BMI 36.96 kg/m2 02/15/2025 Height-cm 170.18 cm 02/15/2025 Weight-kg 107.05 kg 02/15/2025 Encounters Encounter Location Date Provider Diagnosis [facility] [employer] [address] [place] [address] 02/15/2025 Chet Howe Major depressive disorder, recurrent, mild F33.0 ; Other insomnia G47.09 ; Nicotine use Z72.0 ; Generalized anxiety disorder F41.1 ; Post-traumatic stress disorder, chronic F43.12 ; Encounter for screening for depression Z13.31 ; Encounter for screening for cardiovascular disorders Z13.6 and Restless legs syndrome G25.81 Assessments Encounter Date Diagnosis (ICD Code) Assessment Notes Treatment Notes Treatment Clinical Notes Section Notes 02/15/2025 Major depressive disorder, recurrent, mild (ICD-10 - F33.0) stable 02/15/2025 Other insomnia (ICD-10 - G47.09) zolpidem 10mg hs prn 02/15/2025 Nicotine use (ICD-10 - Z72.0) 02/15/2025 Generalized anxiety disorder (ICD-10 - F41.1) 02/15/2025 Post-traumatic stress disorder, chronic (ICD-10 - F43.12) stable 02/15/2025 Encounter for screening for depression (ICD-10 - Z13.31) 02/15/2025 Encounter for screening for cardiovascular disorders (ICD-10 - Z13.6) 02/15/2025 Restless legs syndrome (ICD-10 - G25.81) 02/15/2025 Easton Hunt presents with recent sleep disturbances over the past 3 weeks, following episodes of food poisoning and influenza. Insomnia Assessment: Patient reports struggling with sleep for approximately 3 weeks. He describes difficulty falling asleep, with symptoms of tossing, turning, and walking around. The patient is currently taking Ambien and states he cannot sleep without it. Recent stressors include episodes of food poisoning and influenza, which may have disrupted his sleep routine. Patient denies feeling depressed but acknowledges occasional mood fluctuations related to weather changes. Plan: - Refill Ambien prescription for 3 months through [facility] pharmacy - Encourage maintenance of consistent sleep hygiene practices, including regular shower time - Follow up if sleep disturbances persist or worsen the note is transcribed using speech recognition software. It is a reflection of a visit with the patient. It might have some inaccuracy, including medication names and transcribing errors, though efforts have been made to correct them. Plan Of Treatment Medication Medication Name Sig Start Date Stop Date Notes Zolpidem Tartrate 10 MG 1 tablet at bedt zoe as needed Oral once a day for 30 days 02/15/2025 Treatment Notes Assessment Notes Major depressive disorder, recurrent, mi ld stable Other insomnia zolpidem 10mg hs prn Post-traumatic stress disorder, chronic stable Next Appt Details Follow Up: 3 Months, Reason: f/u depression Provider Name:Chet voss, 05/17/2025 03:45:00 PM, [address], [facility] [address], [place], [address], Progress Notes * EMMANUEL HUNT ADOB: [birth year] (59 yo M)Acc No.[id number]:02/15/2025 Patient: EMMANUEL NEAL Provider: JONNATHAN VIGIL :1965 A ge:59 Y S ex:Male Date:02/15/2025 Address:[address] [place] [address], [facility] Pcp:Jorge Mena DO Subjective: * Chief Complaints: * F OLLOW UPDepression screening positive * HPI: D epression Screening: Chief Complaint Struggles with sleep for 3 weeks, request for sleeping medication refill History of Present Illness Emmanuel Hunt presents for medication refill and reports recent sleep disturbances. He has experienced struggles with sleep over the past 3 weeks, despite regular use of Ambien. The patient describes difficulty falling asleep, characterized by tossing, turning, and eventually getting up to walk around. He maintains a regimental shower routine before bed but still experiences sleep onset issues. Mr. Hunt reports recent health challenges, including a bout of food poisoning which he describes as a devastating experience, followed by a case of influenza that he found horrible. These illnesses appear to have occurred prior to the onset of his sleep difficulties. The patient denies feeling depressed, though he acknowledges experiencing occasional low moods, which he attributes to weather changes. He reports no smoking for the past 4 years, following an unspecified incident. Mr. Hunt is seeking a refill of his sleeping medication, indicating continued reliance on pharmacological sleep aids. Social History The patient reports having quit smoking approximately 4 years ago following an unspecified incident. He mentions struggling with sleep in the past 3 weeks, describing difficulty falling asleep and resorting to walking around when unable to sleep. The patient indicates having a regimented routine, including a specific shower time. He denies feeling depressed, though acknowledges occasional mood fluctuations related to weather changes. Medical History The patient has a history of insomnia, for which they have been taking medication. They experienced food poisoning and influenza in the recent past. The patient reports having quit smoking approximately 4 years ago following an unspecified incident. Medications and Supplements - Ambien - Used for sleep - Patient states there's no chance in hell of sleeping without it Review of Systems The patient reports recent episodes of food poisoning and flu, describing them as devastating and horrible experiences. They have been struggling with sleep for the past 3 weeks, mentioning difficulty falling asleep, tossing and turning, and getting up to walk around. The patient denies feeling depressed, though acknowledges occasional momentary feelings attributed to weather changes. DECLAN-7 (2018 Edition) F eeling nervous, anxious, or on edge N early every day N ot being able to stop or control worrying?Several days W orrying too much about different things S everal days T rouble relaxing S everal days F eeling afraid as if something awful might happen N ot at all T otal DECLAN-7 Score 6 I f you checked any problems, how difficult have they made it for you to do your work, take care of things at home, or get along with other people? N ot difficult at all I nterpretation of Total ( 5 to 9) Mild [place]-Suicide Severity Rating Scale: Suicide Risk (CSRS-screener) i n the past one month Have you wished you were or wished you could go to sleep and not wake up? Y es i n the past one month Have you actually had any thoughts of killing yourself? N o D epression screening: PHQ-9 L ittle interest or pleasure in doing things?Several days F eeling down, depressed, or hopeless S everal days T rouble falling or staying asleep, or sleeping too much S everal days F eeling tired or having little energy S everal days P oor appetite or overeating N early every day F eeling bad about yourself or that you are a failure, or have let yourself or your family down N ot at all T rouble concentrating on things, such as reading the newspaper or watching television S everal days M oving or speaking so slowly that other people could have noticed; or the opposite, being so fidgety or restless that you have been moving around a lot more than usual S everal days T houghts that you would be better off or of hurting yourself in some way N ot at all T otal Score 9 I nterpretation M ild Depression Intervention D epression Screening Findings P ositve F ollow-Up for Depression M ental health treatment assessment, Patient follow-up to return when and if necessary S uicide Risk Assessment Performed 0 02/15/2025 A dditional Evaluation for Depression P sychiatric interview and evaluation N shay of the standardized tool used for adult depression screening: P atient Health Questionnaire (PHQ-9) * ROS: P erformance Met: N ormal blood pressure reading documented, follow-up not required ( G8783). * Medical History: * Surgical History: * Hospitalization/Major Diagno stic Procedure: * Social History: T obacco Use: T obacco Control (Standard) T obacco use: U ses tobacco in other forms M igrated Social History: M igrated Social History: Alcohol Intake: Occasional 12/13/2023,Tobacco Years: Never smoker 07/12/2022. M iscellaneous: A dvance Care Planning A re you your own decision-maker Y es D o you have Power of Soaking Room Operator for Health or Medical? Y es D o you have a power of estate attorney for health??Yes D o you have power of estate attorney for Medical ??Yes I f yes, then please bring the POA paperwork so that we can upload it. Y es * Medications: T akingTestosterone 1.62 % Gel Transdermal Zolpidem Tartrate 10 MG Tablet 1 tablet at bedtime as needed Oral once a day Taking Testosterone 1.62 % Gel Transdermal Taking Zolpidem Tartrate 10 MG Tablet 1 tablet at bedtime as needed Oral once a day DiscontinuedSertraline HCl 50 MG Tablet 1 tablet Oral Once a day Medication List reviewed and reconciled with the patientDiscontinued Sertraline HCl 50 MG Tablet 1 tablet Oral Once a day Medication List reviewed and reconciled with the patient * Allergies: N .K.D.A.no[Allergies Verified] Objective: * Vitals: B P:122/87mm Hg, HR:67/min, Wt:236lbs, Wt-k.05 kg, Ht: 67.00 in, Ht-cm: 170.18 cm, BMI:36.96Index, Body Surface Area: 2.25. * Examination: P [...] content: a ppropriate. Thought process: i ntact. G eneral Examination: M ental Status Examination The patient's thought process appears linear and goal-directed, as evidenced by their coherent responses and ability to provide relevant information about their recent experiences and sleep difficulties. Their mood is described as not really feeling depressed, though they acknowledge experiencing momentaries related to the weather. The patient demonstrates intact cognition, as they are able to engage in conversation and provide a clear account of their recent history and current concerns. Their insight appears fair, recognizing the impact of recent illnesses on their well-being and the need for continued sleep medication. Judgment seems appropriate, as evidenced by their adherence to medication regimens and cessation of smoking. Assessment: * Assessment: 1. M ajor depressive disorder, recurrent, mild - F33.0 2 . O ther insomnia - G47.09 3 . N icotine use - Z72.0 4 . G eneralized anxiety disorder - F41.1 5 . P ost-traumatic stress disorder, chronic - F43.12 & #160; 6 . E ncounter for screening for depression - Z13.31 7 . E ncounter for screening for cardiovascular disorders - Z13.6 8 . R estless legs syndrome - G25.81 Plan: * Treatment: 2. O ther insomnia Refill Zolpidem Tartrate Tablet, 10 MG, 1 tablet at bedtime as needed, Oral, once a day, 30 days, 30 Tablet, Refills 3. Notes: zolpidem 10mg hs prn 3. P ost-traumatic stress disorder, chronic Notes: stable 4. O thers Clinical Notes: Emmanuel Hunt presents with recent sleep disturbances over the past 3 weeks, following episodes of food poisoning and influenza. Insomnia Assessment: Patient reports struggling with sleep for approximately 3 weeks. He describes difficulty falling asleep, with symptoms of tossing, turning, and walking around. The patient is currently taking Ambien and states he cannot sleep without it. Recent stressors include episodes of food poisoning and influenza, which may have disrupted his sleep routine. Patient denies feeling depressed but acknowledges occasional mood fluctuations related to weather changes. Plan: - Refill Ambien prescription for 3 months through [facility] pharmacy - Encourage maintenance of consistent sleep hygiene practices, including regular shower time - Follow up if sleep disturbances persist or worsen the note is transcribed using speech recognition software. It is a reflection of a visit with the patient. It might have some inaccuracy, including medication names and transcribing errors, though efforts have been made to correct them. * Procedure Codes: G 9902 Pt scrn tbco and id as [id number] BEHAV ASSMT W/SCORE & DOCD/STAND [id number] NORMAL BP READING DOC F/U NOT [id number] MOST RECENT SYSTOLIC BP < 140MM [id number] CLIN DEPRESSION SCREEN [id number] MOST RECENT DIASTOLIC BP < 90MM HG * Preventive Medicine: Counseling: C ommunication to patient: Counseled the Patient on tobacco use; cessation provided D ate Counseled the Patient on smoking cessation; education provided D ate Counseled the Patient on smoking effects; education provided D ate S moking Cessation counseling done Discuss the importance of quitting smoking. * Follow Up: 3 Months (Reason: f/u depression) * Billing Information: * Visit Code: 05713 OFFICE OUTPATIENT VISIT 25 MINUTES DETAILED HISTORY AND EXAM/MODERATE MEDICAL DECISION MAKING. * Procedure Codes: G9902 Pt scrn tbco and id as user. [id number] BEHAV ASSMT W/SCORE & DOCD/STAND INSTRUMENT. G8783 NORMAL BP READING DOC F/U NOT RQR. G8752 MOST RECENT SYSTOLIC BP < 140MM HG. G8431 CLIN DEPRESSION SCREEN DOC. G8754 MOST RECENT DIASTOLIC BP < 90MM HG. * Sign off status: Completed true * Provider: JONNATHAN VIGIL Date: 0 02/15/2025 Generated for Clark lantigua/Kulwant/Javier on: 0 02/16/2025 02:11 PM CDT History and Physical Notes * HPI (History of Present Illness) Category Sub-Category Detail Notes Category Not es Depression screening PHQ-9 Little inte rest or pleasure in doing things: Several days Feeling down, depressed, or hopeless: Se veral days Trouble falling or staying asleep, or sl eeping too much: Several days Feeling tired or having little energy: S everal days Poor appetite or overeating: Nearly ever y day Feeling bad about yourself o r that [...] some way: Not at all Total Score: 9 Interpretation: Mild Depression Intervention Depression Screening Findings: P ositve Follow-Up for Depression: [facility] treatment assessment, Patient follow-up to return when and if necessary Suicide Risk Assessment Performed: 02/15 Additional Evaluation for Depression: Ps ychiatric interview and evaluation Name of the standardized too l used for adult depression screening:: Patient Health Questionnaire (PHQ-9) Depression Screening DECLAN-7 (2018 Edition) Feelin g nervous, anxious, or on edge: Nearly every day Not being able to stop or control worryedy lantigua: Several days Worrying too much about different things : Several days Trouble relaxing: Several days Feeling afraid as if something awful layo ht happen: Not at all Total DECLAN-7 Score: 6 If you checked any problems, how difficult have they made it for you to do your work, take care of things at home, or get along with other people?: Not difficult at all Interpretation of Total: (5 to 9) Mild [place]-Suicide Severity Rating Scale Suicide Risk (CSRS-screener) in the past one month Have you wished you were or wished you could go to sleep and not wake up?: Yes in the past one month Have y ou actually had any thoughts of killing yourself?: No Examination Category Sub-Category Detail Notes Category Not es Psychiatry Appearance: well-groomed, well-nourished , ... Attitude: cooperative Psychomotor activity: within normal rang [...] no impairment noted Delusions: no Hallucinations: no General Examination Mental Status Examination The patient's thought process appears linear and goal-directed, as evidenced by their coherent responses and ability to provide relevant information about their recent experiences and sleep difficulties. Their mood is described as not really feeling depressed, though they acknowledge experiencing momentaries related to the weather. The patient demonstrates intact cognition, as they are able to engage in conversation and provide a clear account of their recent history and current concerns. Their insight appears fair, recognizing the impact of recent illnesses on their well-being and the need for continued sleep medication. Judgment seems appropriate, as evidenced by their adherence to medication regimens and cessation of smoking.
--- OUTSIDE RECORDS SUMMARY | 2025-02-16 14:11 | XMS_ITS | Clinical Summary ---
Author Organization [facility] Address [address] [place] [address] Care Team Providers Care Hourly Team Members Name Role Phone Geoffrey Reeves Primary Care Provider [phone] Allergies No known active allergies Medications HYDROcodone-acet aminophen 7.5-325 MG/15ML Solution solutionIndicati ons:Acute Pain < 3 Day Supply Take 5-10 mLs by mouth every 4 (four) hours as needed for Pain. Indications : Acute Pain < 3 Day Supply 70 mL 04/16/2021 Active diclofenac EC 75 MG tabletIndication s:Hematoma of neck, initial encounter,Blunt trauma of neck, initial encounter Take 1 tablet (75 mg total) by mouth 2 (two) times daily as needed (Pain. Please take with meals). 30 tablet 04/16/2021 Active Social History Tobacco Use Types Packs/Day Years Used Date Smoking Tobacco: Never Smokeless Tobacco: Never Alcohol Use Standard Drinks/Week Comments Not Currently 0 (1 standard drink = 0.6 oz pur e alcohol) Sex and Gender Information Value Date Recorded Sex Assigned at Not on file Legal Sex Male 7:46 PM CDT Gender Identity Not on file Sexual Orientation Not on file Last Filed Vital Signs Vital Sign Reading Time Taken Comments Blood Pressure 139/86 04/16/2021 12:04 AM CDT Pulse 72 04/16/2021 12:04 AM CDT Temperature 36.6 C (97.9 F) 04/16/2021 12:04 AM CDT Respiratory Rate 16 04/16/2021 12:04 AM CDT Oxygen Saturation 97% 04/16/2021 12:04 AM CDT Inhaled Oxygen Concentration - - Weight 104.1 kg (229 lb 8 oz) 04/16/2021 12:04 A M CDT Height 167.6 cm (5' 6 ) 04/16/2021 12:04 AM CDT Body Mass Index 37.04 04/16/2021 12:04 AM CDT Plan of Treatment Health Maintenance Due Date Last Done Comments Colorectal Cancer Screening Colonoscopy (10 Years) 1965 Annual Physical 1968 Hepatitis C 1983 DTaP, Tdap and Td Vaccines ( 1 - Tdap) 1984 Zoster Vaccines (1 of 2) 2015 COVID-19 Vaccine (2023-2 5 season) 2024 Influenza Adult (#1) 2024 Meningococcal B Vaccine Aged Out No l onger eligible based on patient's age to complete this topic Meningococcal Vaccine Aged Out No geovanni jason eligible based on patient's age to complete this topic Pneumococcal Vaccine: Pediat rics (0 to 5 Years) and At-Risk Patients (6 to 64 Years) Aged Out No longer eligible b ased on patient's age to complete this topic RSV Immunizations Under 20 Months Aged Out No longer eligible based on patient's age to complete this topic Insurance [facility] Care Teams Hourly Team Members Relationship Specialty Start Date End Date Geoffrey Reeves DO [facility] - General 03/11/15
--- OUTSIDE RECORDS SUMMARY | 2025-02-16 14:11 | XMS_ITS | Encounter Summary ---
Author Name [facility] [place] [facility] [place] Address [address] [place] [address] Care Team Providers Care Electroneurodiagnostic Technician Name Role Phone IDALIA WESTON Primary Care [...] ION (PPO) [place] 2022 [id number] [phone] GILBERTKERRIE PATIENT ANTHEM [employer] [place] PREFERRED PROVIDER ORGANIZAT ION (PPO) [employer] [place] 2022 [id number] [phone] GILBERTKERRIE PATIENT AN[employer] [employer] [place] PREFERRED PROVIDER ORGANIZAT ION (PPO) [employer] [place] 2022 [id number] [phone] GILBERTKERRIE PATIENT [employer] [place] PREFERRED PROVIDER ORGANIZAT ION (PPO) [employer] [place] 2022 [id number] [phone] KERRIE HUNT PATIENT [employer] PRESCRIPT ION REP WAGE 2004 [id number] [phone] KERRIE HUNT PATIENT [employer] PRESCRIPT ION RX PLAN 2004 [phone] KERRIE HUNT PATIENT Selected Encounter This section includes the information on record at [place] for the Encounter. Date/Time Encounter Type Encounter Description Reason Provider Source Jun 22, 2024 11:00 AM OFFICE O/P EST MOD 30 MIN ENDOCRINOLOGY ICD-10-CM E29.1 Testicular hypofunction JADEN MIRANDA [facility] Encounter Template Text not used by [place] Assessments - Encounter Diagnoses This section includes the primary and secondary diagnoses documented for the Encounter. Date/Time Primary/Secondary Diagnosis Diagnosis Name Provider Source Jun 30, 2024 07:34 AM PRIMARY Testicular hypofunction JADEN MIRANDA [facility] Plan of Treatment: Future Appointments (+ 6 months) and Future Tests (+/- 45 days) The Plan of Treatment section includes future care activities for the patient from all [place] [facility]. This section includes future appointments and future orders which are active, pending or scheduled. Future Appointments This section includes appointments that were scheduled to occur 6 months from the date of the Encounter, up to a maximum of 20 appointments. The data comes from all [place] treatment [facility]. Appointment Date/Time Appointment Type Appointme nt Facility Name Jun 25, 2024 10:00 AM AMBULATORY - PSYCHIATRY [facility] Dec 03, 2024 10:00 AM AMBULATORY - PSYCHIATRY [facility] Active, Pending, and Scheduled Orders This section includes a listing of several types of active, pending, and scheduled orders, including clinic medications orders, diagnostic test orders, procedure orders and consult orders; where the start date of the order is 45 days before the date of the Encounter or 45 days after the date of theEncounter. The data comes from all [place] treatment [facility]. Test Date/Time Test Type Test Details Facility Name Jun 22, 2024 12:00 AM Laboratory - Chemi stry Order PROST. SPECIFIC AG.(PB-STL) GOLD/RED SST SERUM SP [facility] Jun 22, 2024 12:00 AM Laboratory - Chemi stry Order TESTOSTERONE, FREE PANEL RED/NO-GEL SERUM SP [facility] Jun 22, 2024 12:00 AM Laboratory - Chemi stry Order CBC BLOOD SP [facility] Jun 25, 2024 12:00 AM Laboratory - Chemi stry Order URINE DRUG SCREEN (STL) URINE YELLOW SP [facility] Vital Signs: All taken on the encounter date This section contains inpatient and outpatient Vital Signs collected on the date of the Encounter. Date/Time Temperature Pulse Blood Pressure Respiratory Rate SP02 Pain Height Weight Body Mass Index Source Jun 22, 2024 11:04 AM 98.3 72 131/86 18 97 3 234.2 36 [facility] Jun 22, 2024 10:49 AM 98.5 65 134/87 16 96 5 68 234.2 36 [facility] Encounter Notes: All associated encounter notes This section contains the clinical notes associated to the Encounter. Date/Time Encounter Note(s) Provider Source Dec 28, 2024 12:32 PM ADDENDUM: LOCAL TITLE: Addendum STANDARD TITLE: ADDENDUM DATE OF NOTE: DEC 28, 2024@12:32:52 ENTRY DATE: DEC 28, 2024@12:32:53 AUTHOR: WILMER HEDRICK EXP COSIGNER: URGENCY: STATUS: COMPLETED 1232: engineering technical writer placed order for testosterone and cbc d/t upcoming appt on 01/11/25 /lu/ WILMER HEDRICK MSN RN REGISTERED NURSE Signed: 12/28/2024 12:34 Receipt Acknowledged By: 12/28/2024 14:44 /lu/ Mercedes Coyle MD STAFF LOANS CONSULTANT for JADEN MIRANDA --- Original Document --- 06/22/24 ENDOCRINOLOGY OUTPATIENT FOLLOW UP STL: History of present illness: EMMANUEL HUNT is a 58yo MALE who returns for f/u of hypogonadism. Endorsed low libido, ED (on viagra), and fatigue. Has 2 confirmed total T levels with free T also low. started androgel 2 pumps daily in 01/2023 and notes mild improvement in energy but not to the degree he had hoped. had sleep study which showed restless legs syndrome. testosterone levels have been low despite therapy. HCT and PSA wnl recently though psa intermittently elevated. Has lost about 10 lbs. Walking 3 miles daily now. Libido improved on therapy. ROS: + per hpi, otherwise negative in detail 7-8 months has been consistant with 2 pumps reports no improvement in symptoms Past Medical History: 1) Obesity 2) Polyp of colon 3) Primary insomnia 4) Gastroesophageal reflux disease 5) Posttraumatic stress disorder 6) Polyarthralgia 7) Major depressive disorder 8) Generalized anxiety disorder 9) History of alcohol abuse 10) Opioid dependence in remission 11) Exposure to potentially hazardous substance Medications: Active Outpatient Medications (excluding Supplies): Issue Date Status Last Fill Active Outpatient Medications Refills Expiration 1) FLUTICASONE PROP 50MCG 120D NASAL INHL ACTIVE Issu:07-16-23 Qty: 1 for 60 days Sig: INSTILL 1 Refills: 1 Last:08-30-23 SPRAY IN NOSTRIL(S) ONCE A DAY (MUST Expr:07-16-24 BE USED DIRECTED FOR MINIMUM OF 21 DAYS TO PROVIDE ADEQUATE BENEFITS) 2) NAPROXEN 500MG TAB Qty: 90 for 45 days ACTIVE Issu:08-14-23 Sig: TAKE ONE TABLET BY MOUTH TWICE Refills: 0 Last:03-16-24 DAILY NEEDED FOR PAIN AND/OR Expr:08-14-24 INFLAMMATION. TAKE WITH FOOD. 3) SILDENAFIL CITRATE 100MG TAB Qty: 18 ACTIVE (S) Issu:01-16-24 for 90 days Sig: TAKE ONE TABLET BY Refills: 2 Last:08-26-24 MOUTH TWO TIMES PER WEEK NEEDED FOR Expr:01-16-25 ERECTILE DYSFUNCTION (TAKE 60 MINUTES PRIOR TO SEXUAL ACTIVITY) - LIMIT 6 DOSES PER 30 DAYS 90 DAY SUPPLY 4) TESTOSTERONE 1.62% 20.25MG/PUMP TOP GEL ACTIVE Issu:06-09-24 Qty: 1 for 30 days Sig: APPLY 2 PUMPS Refills: 5 Last:06-14-24 (40.5MG) TO AFFECTED AREA(S) ONCE A Expr:12-10-24 DAY FOR LOW TESTOSTERONE APPLY TO CLEAN DRY SKIN OF UPPER ARMS OR UPPER SHOULDER ONLY 5) ZOLPIDEM TARTRATE 12.5MG SA TAB Qty: 30 ACTIVE Issu:03-04-24 for 30 days Sig: TAKE ONE TABLET BY Refills: 1 Last:06-11-24 MOUTH AT BEDTIME NEEDED Expr:09-04-24 Physical Exam: Vital Signs: Temperature: 97.6 F [36.4 C] (12/11/2023 10:10) [...] / 114.8 kg. on MAY 09, 2023@11:04:11 CON: Well developed, well nourished HEENT: EOMI, sclera anicteric NECK: Supple, no cervical LAD CV: RRR, no murmur, no edema RESP: CTAB, EBBS GI: s, nt,nd NEURO: strength B WNL, nonfocal PSYCH: pleasant, appropriate LABS: Comprehensive Metabolic Panel Results: SODIUM 134 L mEq/L 05/09/2023 11:45 POTASSIUM 4.6 mEq/L 05/09/2023 11:45 CHLORIDE 106 mEq/L 05/09/2023 11:45 UREA NITROGEN 18 mg/dL 05/09/2023 11:45 CREATININE 1.11 mg/dL 05/09/2023 11:45 CALCIUM 9.2 mg/dL 05/09/2023 11:45 PROTEIN 7.7 g/dL 05/09/2023 11:45 ALBUMIN 4.3 g/dL 05/09/2023 11:45 ALKALINE PHOSPHATASE 68 U/L 05/09/2023 11:45 ALT/SGPT 36 U/L 05/09/2023 11:45 AST/SGOT 20 U/L 05/09/2023 11:45 TOTAL BILIRUBIN 0.5 mg/dL 05/09/2023 11:45 CARBON DIOXIDE 19 L mEq/L 05/09/2023 11:45 GLUCOSE 101 H mg/dL 05/09/2023 11:45 EGFR (CKD-EPI 2020) 77.5 05/09/2023 11:45 STL EGFR (within one year). *No Lab Data Found* CREATININE 1.11 mg/dL 05/09/2023 11:45 EGFR (CKD-EPI 2020) 77.5 05/09/2023 11:45 PSA =PROST. SPECIFIC AG.(PB-STL) 1.365 ng/mL 01/02/2024 10:13 HGA1C 5.8 % 05/09/2023 11:45 HGA1C 5.7 % 02/06/2022 11:29 HGA1C 5.6 % 02/07/2021 10:00 No MICRAL/CREAT RATIO (STL) data found Lipid Panel: No LIPID PANEL EO data found Assessment and plan: GILBERTEMMANUEL Hall is a 58yoM here for f/u of hypogonadism #) Hypogonadism: hypogonadotropic based on labs. nl prl in 11/2022. will check labs on androgel 2 pumps daily. May need to increase dose given subtherapeutic levels. Also need to closely monitor psa given intermittent elevation. #) ED: on viagra, testosterone therapy as above,. RTC in 6 mo /lu/ Jaden Miranda MD Staff Physician Endocrinology Signed: 06/22/2024 11:50 WILMER HEDRICK [facility] Jun 22, 2024 10:46 AM ENDOCRINOLOGY OUTP ATIENT NOTE: LOCAL TITLE: ENDOCRINOLOGY OUTPATIENT FOLLOW UP STL STANDARD TITLE: ENDOCRINOLOGY OUTPATIENT NOTE DATE OF NOTE: JUN 22, 2024@10:46 ENTRY DATE: JUN 22, 2024@10:46:46 AUTHOR: JADEN MIRANDA EXP COSIGNER: URGENCY: STATUS: COMPLETED ENDOCRINOLOGY OUTPATIENT FOLLOW UP STL Has ADDENDA History of present illness: EMMANUEL HUNT is a 58yo MALE who returns for f/u of hypogonadism. Endorsed low libido, ED (on viagra), and fatigue. Has 2 confirmed total T levels with free T also low. started androgel 2 pumps daily in 01/2023 and notes mild improvement in energy but not to the degree he had hoped. had sleep study which showed restless legs syndrome. testosterone levels have been low despite therapy. HCT and PSA wnl recently though psa intermittently elevated. Has lost about 10 lbs. Walking 3 miles daily now. Libido improved on therapy. ROS: + per hpi, otherwise negative in detail 7-8 months has been consistant with 2 pumps reports no improvement in symptoms Past Medical History: 1) Obesity 2) Polyp of colon 3) Primary insomnia 4) Gastroesophageal reflux disease 5) Posttraumatic stress disorder 6) Polyarthralgia 7) Major depressive disorder 8) Generalized anxiety disorder 9) History of alcohol abuse 10) Opioid dependence in remission 11) Exposure to potentially hazardous substance Medications: Active Outpatient Medications (excluding Supplies): Issue Date Status Last Fill Active Outpatient Medications Refills Expiration 1) FLUTICASONE PROP 50MCG 120D NASAL INHL ACTIVE Issu:07-16-23 Qty: 1 for 60 days Sig: INSTILL 1 Refills: 1 Last:08-30-23 SPRAY IN NOSTRIL(S) ONCE A DAY (MUST Expr:07-16-24 BE USED DIRECTED FOR MINIMUM OF 21 DAYS TO PROVIDE ADEQUATE BENEFITS) 2) NAPROXEN 500MG TAB Qty: 90 for 45 days ACTIVE Issu:08-14-23 Sig: TAKE ONE TABLET BY MOUTH TWICE Refills: 0 Last:04-29-24 DAILY NEEDED FOR PAIN AND/OR Expr:08-14-24 INFLAMMATION. TAKE WITH FOOD. 3) SILDENAFIL CITRATE 100MG TAB Qty: 18 ACTIVE (S) Issu:01-16-24 for 90 days Sig: TAKE ONE TABLET BY Refills: 2 Last:07-13-24 MOUTH TWO TIMES PER WEEK NEEDED FOR Expr:01-16-25 ERECTILE DYSFUNCTION (TAKE 60 MINUTES PRIOR TO SEXUAL ACTIVITY) - LIMIT 6 DOSES PER 30 DAYS 90 DAY SUPPLY 4) TESTOSTERONE 1.62% 20.25MG/PUMP TOP GEL ACTIVE Issu:06-09-24 Qty: 1 for 30 days Sig: APPLY 2 PUMPS Refills: 5 Last:06-14-24 (40.5MG) TO AFFECTED AREA(S) ONCE A Expr:12-10-24 DAY FOR LOW TESTOSTERONE APPLY TO CLEAN DRY SKIN OF UPPER ARMS OR UPPER SHOULDER ONLY 5) ZOLPIDEM TARTRATE 12.5MG SA TAB Qty: 30 ACTIVE Issu:03-04-24 for 30 days Sig: TAKE ONE TABLET BY Refills: 1 Last:06-11-24 MOUTH AT BEDTIME NEEDED Expr:09-04-24 Physical Exam: Vital Signs: Temperature: 97.6 F [36.4 C] (12/11/2023 10:10) [...] / 114.8 kg. on MAY 09, 2023@11:04:11 CON: Well developed, well nourished HEENT: EOMI, sclera anicteric NECK: Supple, no cervical LAD CV: RRR, no murmur, no edema RESP: CTAB, EBBS GI: s, nt,nd NEURO: strength B WNL, nonfocal PSYCH: pleasant, appropriate LABS: Comprehensive Metabolic Panel Results: SODIUM 134 L mEq/L 05/09/2023 11:45 POTASSIUM 4.6 mEq/L 05/09/2023 11:45 CHLORIDE 106 mEq/L 05/09/2023 11:45 UREA NITROGEN 18 mg/dL 05/09/2023 11:45 CREATININE 1.11 mg/dL 05/09/2023 11:45 CALCIUM 9.2 mg/dL 05/09/2023 11:45 PROTEIN 7.7 g/dL 05/09/2023 11:45 ALBUMIN 4.3 g/dL 05/09/2023 11:45 ALKALINE PHOSPHATASE 68 U/L 05/09/2023 11:45 ALT/SGPT 36 U/L 05/09/2023 11:45 AST/SGOT 20 U/L 05/09/2023 11:45 TOTAL BILIRUBIN 0.5 mg/dL 05/09/2023 11:45 CARBON DIOXIDE 19 L mEq/L 05/09/2023 11:45 GLUCOSE 101 H mg/dL 05/09/2023 11:45 EGFR (CKD-EPI 2020) 77.5 05/09/2023 11:45 STL EGFR (within one year). *No Lab Data Found* CREATININE 1.11 mg/dL 05/09/2023 11:45 EGFR (CKD-EPI 2020) 77.5 05/09/2023 11:45 PSA =PROST. SPECIFIC AG.(PB-STL) 1.365 ng/mL 01/02/2024 10:13 HGA1C 5.8 % 05/09/2023 11:45 HGA1C 5.7 % 02/06/2022 11:29 HGA1C 5.6 % 02/07/2021 10:00 No MICRAL/CREAT RATIO (STL) data found Lipid Panel: No LIPID PANEL EO data found Assessment and plan: GILBERTEMMANUEL Hall is a 58yoM here for f/u of hypogonadism #) Hypogonadism: hypogonadotropic based on labs. nl prl in 11/2022. will check labs on androgel 2 pumps daily. May need to increase dose given subtherapeutic levels. Also need to closely monitor psa given intermittent elevation. #) ED: on viagra, testosterone therapy as above,. RTC in 6 mo /es/ Jaden Miranda MD Staff Physician Endocrinology Signed: 06/22/2024 11:50 12/28/2024 ADDENDUM STATUS: COMPLETED 1232: engineering technical writer placed order for testosterone and cbc d/t upcoming appt on 01/11/25 /lu/ WILMER HEDRICK MSN RN REGISTERED NURSE Signed: 12/28/2024 12:34 Receipt Acknowledged By: * AWAITING SIGNATURE * JADEN MIRANDA [facility]EVIN T [facility]
--- OUTSIDE RECORDS SUMMARY | 2025-02-16 14:11 | XMS_ITS ---
Author Organization [facility] [employer] Address [address] [place] [address] Care Team Providers Care Test Tech Name Role Phone Jorge Mena DO Primary Care Provider Chet Zuniga Unavailable [phone] REASON FOR VISIT f/u depression, anxiety Medications Medication SIG (Take, Route, Fr equency, Duration) Notes Start Date End Date Status Sertraline HCl 25 MG 1 tablet Orally Onc e a day for 7 days 08/17/2024 Active Testosterone 1.62 % Transdermal for 30 Days Active Sertraline HCl 50 MG 1 tablet Oral Once a day for 30 days Active Zolpidem Tartrate 10 MG 1 tablet at bedt zoe as needed Oral once a day for 30 days Active Social History Tobacco Use: Social History Observation Description Date Details (start date - stop date) Never Smoker NA - NA Sex Assigned At : Social History Observation Description Sex Assigned At Female Tobacco Control (Standard) Question Answer Notes Tobacco use: Nonsmoker Vital Signs Blood pressure systolic 147 mm Hg 09/14/20 24 Blood pressure diastolic 89 mm Hg 024 Heart Rate 71 /min 09/14/2024 Height 67.00 in 09/14/2024 Weight 235.6 lbs 09/14/2024 BMI 36.9 kg/m2 09/14/2024 Height-cm 170.18 cm 09/14/2024 Weight-kg 106.87 kg 09/14/2024 Encounters Encounter Location Date Provider Diagnosis [facility] [employer] [address] [place] [address] 09/14/2024 Chet Howe Post-traumatic stres s disorder, chronic F43.12 ; Restless legs syndrome G25.81 ; Other insomnia G47.09 ; Generalized anxiety disorder F41.1 and Major depressive disorder, recurrent, mild F33.0 Assessments Encounter Date Diagnosis (ICD Code) Assessment Notes Treatment Notes Treatment Clinical Notes Section Notes 09/14/2024 Post-traumatic stress disorder, chronic (ICD-10 - F43.12) stable 1. Anxiety and irritability: - Patient reports improvement in anxiety and irritability after increasing sertraline dosage to 50 mg. - Noticed reduction in lip biting and aggressive thoughts. Plan: - Continue sertraline 50 mg daily. - Monitor for any side effects or changes in symptoms. - Follow up in 5 weeks to assess the need for dosage adjustment. 2. Insomnia: - Patient reports significant improvement in sleep since starting Spravato and maintaining a bedtime routine. - Currently taking zolpidem as needed. Plan: - Continue zolpidem as needed for insomnia. - Encourage patient to maintain a consistent bedtime routine. - Monitor for any changes in sleep patterns or side effects. - Ensure patient has refills for zolpidem. 3. Depression: - Patient reports overall improvement in mood and decrease in negative thoughts since starting sertraline and Spravato. Plan: - Continue sertraline 50 mg daily and Spravato as prescribed. - Monitor for any changes in mood or depressive symptoms. - Follow up in 5 weeks to assess the need for dosage adjustment. 4. Weight loss: - Patient reports losing weight and feeling less stressed. Plan: - Encourage patient to maintain a healthy lifestyle, including regular physical activity and a balanced diet. - Monitor weight changes during follow-up visits. 5. Follow-up: - Schedule a follow-up appointment for the first week of October. 09/14/2024 Restless legs syndrome (ICD-10 - G25.81) 1. Anxiety and irritability: - Patient reports improvement in anxiety and irritability after increasing sertraline dosage to 50 mg. - Noticed reduction in lip biting and aggressive thoughts. Plan: - Continue sertraline 50 mg daily. - Monitor for any side effects or changes in symptoms. - Follow up in 5 weeks to assess the need for dosage adjustment. 2. Insomnia: - Patient reports significant improvement in sleep since starting Spravato and maintaining a bedtime routine. - Currently taking zolpidem as needed. Plan: - Continue zolpidem as needed for insomnia. - Encourage patient to maintain a consistent bedtime routine. - Monitor for any changes in sleep patterns or side effects. - Ensure patient has refills for zolpidem. 3. Depression: - Patient reports overall improvement in mood and decrease in negative thoughts since starting sertraline and Spravato. Plan: - Continue sertraline 50 mg daily and Spravato as prescribed. - Monitor for any changes in mood or depressive symptoms. - Follow up in 5 weeks to assess the need for dosage adjustment. 4. Weight loss: - Patient reports losing weight and feeling less stressed. Plan: - Encourage patient to maintain a healthy lifestyle, including regular physical activity and a balanced diet. - Monitor weight changes during follow-up visits. 5. Follow-up: - Schedule a follow-up appointment for the first week of October. 09/14/2024 Other insomnia (ICD-10 - G47.09) zolpidem 10mg hs prn 1. Anxiety and irritability: - Patient reports improvement in anxiety and irritability after increasing sertraline dosage to 50 mg. - Noticed reduction in lip biting and aggressive thoughts. Plan: - Continue sertraline 50 mg daily. - Monitor for any side effects or changes in symptoms. - Follow up in 5 weeks to assess the need for dosage adjustment. 2. Insomnia: - Patient reports significant improvement in sleep since starting Spravato and maintaining a bedtime routine. - Currently taking zolpidem as needed. Plan: - Continue zolpidem as needed for insomnia. - Encourage patient to maintain a consistent bedtime routine. - Monitor for any changes in sleep patterns or side effects. - Ensure patient has refills for zolpidem. 3. Depression: - Patient reports overall improvement in mood and decrease in negative thoughts since starting sertraline and Spravato. Plan: - Continue sertraline 50 mg daily and Spravato as prescribed. - Monitor for any changes in mood or depressive symptoms. - Follow up in 5 weeks to assess the need for dosage adjustment. 4. Weight loss: - Patient reports losing weight and feeling less stressed. Plan: - Encourage patient to maintain a healthy lifestyle, including regular physical activity and a balanced diet. - Monitor weight changes during follow-up visits. 5. Follow-up: - Schedule a follow-up appointment for the first week of October. 09/14/2024 Generalized anxiety disorder (ICD-10 - F41.1) 1. Anxiety and irritability: - Patient reports improvement in anxiety and irritability after increasing sertraline dosage to 50 mg. - Noticed reduction in lip biting and aggressive thoughts. Plan: - Continue sertraline 50 mg daily. - Monitor for any side effects or changes in symptoms. - Follow up in 5 weeks to assess the need for dosage adjustment. 2. Insomnia: - Patient reports significant improvement in sleep since starting Spravato and maintaining a bedtime routine. - Currently taking zolpidem as needed. Plan: - Continue zolpidem as needed for insomnia. - Encourage patient to maintain a consistent bedtime routine. - Monitor for any changes in sleep patterns or side effects. - Ensure patient has refills for zolpidem. 3. Depression: - Patient reports overall improvement in mood and decrease in negative thoughts since starting sertraline and Spravato. Plan: - Continue sertraline 50 mg daily and Spravato as prescribed. - Monitor for any changes in mood or depressive symptoms. - Follow up in 5 weeks to assess the need for dosage adjustment. 4. Weight loss: - Patient reports losing weight and feeling less stressed. Plan: - Encourage patient to maintain a healthy lifestyle, including regular physical activity and a balanced diet. - Monitor weight changes during follow-up visits. 5. Follow-up: - Schedule a follow-up appointment for the first week october. 09/14/2024 Major depressive disorder, recurrent, mild (ICD-10 - F33.0) cont sertraline 1. Anxiety and irritability: - Patient reports improvement in anxiety and irritability after increasing sertraline dosage to 50 mg. - Noticed reduction in lip biting and aggressive thoughts. Plan: - Continue sertraline 50 mg daily. - Monitor for any side effects or changes in symptoms. - Follow up in 5 weeks to assess the need for dosage adjustment. 2. Insomnia: - Patient reports significant improvement in sleep since starting Spravato and maintaining a bedtime routine. - Currently taking zolpidem as needed. Plan: - Continue zolpidem as needed for insomnia. - Encourage patient to maintain a consistent bedtime routine. - Monitor for any changes in sleep patterns or side effects. - Ensure patient has refills for zolpidem. 3. Depression: - Patient reports overall improvement in mood and decrease in negative thoughts since starting sertraline and Spravato. Plan: - Continue sertraline 50 mg daily and Spravato as prescribed. - Monitor for any changes in mood or depressive symptoms. - Follow up in 5 weeks to assess the need for dosage adjustment. 4. Weight loss: - Patient reports losing weight and feeling less stressed. Plan: - Encourage patient to maintain a healthy lifestyle, including regular physical activity and a balanced diet. - Monitor weight changes during follow-up visits. 5. Follow-up: - Schedule a follow-up appointment for the first week of October. Plan Of Treatment Medication Medication Name Sig Start Date Stop Date Notes Sertraline HCl 50 MG 1 tablet Oral Once a day for 30 days Zolpidem Tartrate 10 MG 1 tablet at bedt zoe as needed Oral once a day for 30 days Treatment Notes Assessment Notes Post-traumatic stress disorder, chronic stable Other insomnia zolpidem 10mg hs prn Major depressive disorder, recurrent, mi ld cont sertraline Next Appt Details Follow Up: 6 Weeks, Reason: f/u depression Provider Name:Chet voss, 05/17/2025 03:45:00 PM, [facility], [facility] [address], [place], [address], Progress Notes * EMMANUEL HUNT ADOB: [birth year] (58 yo M)Acc No.[id number]:09/14/2024 Patient: Belinda RAKANEMMANUEL Garcia Provider: JONNATHAN VIGIL :1965 A ge:58 Y S ex:Male Date:09/14/2024 Address:[address] [place], [place] [id number] Pcp:Jorge Mena DO Subjective: * Chief Complaints: * F /u depression, anxiety * HPI: D epression Screening: Chief complaint- Follow-up on medication effects and mood. the note is transcribed using speech recognition software. It is a reflection of a visit with the patient. It might have some inaccuracy, including medication names and transcribing errors, though efforts have been made to correct them. The patient reports noticing a decrease in irritability and lip biting at work since starting sertraline 50 mg. He mentions that the edge subsided by the middle of last week. The patient has been experiencing weight loss and has been relatively stress-free. The patient enjoys the cooler months and being busy, which contributes to his weight loss. He expresses sadness about not having any more vacation time this year but looks forward to taking time off next summer. The patient had a gathering with friends earlier in August and mentioned not being able to smoke marijuana due to work. He also discussed his friend's positive experience with Spravato. The patient has been sleeping better since starting Spravato and has established a bedtime routine. He believes that the medication has been a game changer for him and has improved his quality of life. The patient acknowledges that people with depression and sleep problems face a double challenge and that getting proper sleep has made it easier for him to cope with his emotions. He feels that he is no longer his own anchor dragging him down. DECLAN-7 (2018 Edition) F eeling nervous, anxious, or on edge?Nearly every day, N ot being able to stop or control worrying N ot at all, W orrying too much about different things N ot at all, T rouble relaxing S everal days, B eing so restless that it is hard to sit still S everal days, B ecoming easily annoyed or irritable S everal days, F eeling afraid as if something awful might happen N ot at all, T otal DECLAN-7 Score 6 , I f you checked any problems, how difficult have they made it for you to do your work, take care of things at home, or get along with other people? N ot difficult at all, I nterpretation of Total ( 5 to 9) Mild. [place]-Suicide Severity Rating Scale: Suicide Risk (CSRS-screener) i n the past one month Have you wished you were or wished you could go to sleep and not wake up? N o, i n the past one month Have you actually had any thoughts of killing yourself? N o, H ave you ever done anything, started to do anything, or prepared to do anything to end your life? N o. D epression screening: PHQ-9 L ittle interest or pleasure in doing things S everal days, F eeling down, depressed, or hopeless S everal days, T rouble falling or staying asleep, or sleeping too much N ot at all, F eeling tired or having little energy S everal days, P oor appetite or overeating S everal days, F eeling bad about yourself or that you are a failure, or have let yourself or your family down N ot at all, T rouble concentrating on things, such as reading the newspaper or watching television N ot at all, M oving or speaking so slowly that [...] ild Depression. I ntervention D epression Screening Findings?Positve, F ollow-Up for Depression E motional support education, Management of mental health treatment, S uicide Risk Assessment Performed , A dditional Evaluation for Depression P sychiatric interview and evaluation, N shay of the standardized tool used for adult depression screening: P atient Health Questionnaire (PHQ-9). H istory of Presenting Problem: Depression d epression has improved with Spravato. [...] T obacco Control (Standard) T obacco use: N onsmoker. M igrated Social History: M igrated Social History: Alcohol Intake: Occasional 12/13/2023,Tobacco Years: Never smoker 07/12/2022. M iscellaneous: A dvance Care Planning A re you your own decision-maker Y es, D o you have Power of Entry Level Mechanical Engineer for Health or Medical? Y es, D o you have a power of real estate attorney for health? Y es, D o you have power of real estate attorney for Medical ? Y es, I f yes, then please bring the POA paperwork so that we can upload it. Y lu. * Medications: T akingZolpidem Tartrate 10 MG Tablet 1 tablet at bedtime as needed Oral once a day Testosterone 1.62 % Gel Transdermal Sertraline HCl 25 MG Tablet 1 tablet Orally Once a day Sertraline HCl 50 MG Tablet 1 tablet Oral Once a day Medication List reviewed and reconciled with the patientTaking Zolpidem Tartrate 10 MG Tablet 1 tablet at bedtime as needed Oral once a day Taking Testosterone 1.62 % Gel Transdermal Taking Sertraline HCl 25 MG Tablet 1 tablet Orally Once a day Taking Sertraline HCl 50 MG Tablet 1 tablet Oral Once a day Medication List reviewed and reconciled with the patient Objective: * Vitals: B P:147/89mm Hg, HR:71/min, Wt:235.6lbs, Wt-k.87 kg, Ht: 67.00 in, Ht-cm: 170.18 cm, BMI:36.9Index, Body Surface Area: 2.25. * Examination: P [...] Thought process: i ntact. G eneral Examination: - Mental Status Examination: - Patient reports improved mood and decreased irritability, noting a reduction in aggressive impulses and anxiety. - Describes better sleep patterns and adherence to a bedtime routine. - Expresses satisfaction with current medication regimen, noting it has taken off the edge. - Exhibits future-oriented thinking with plans for vacation and seasonal activities. - No reported hallucinations, delusions, or suicidal ideations. - Physical Examination: - Weight: Patient reports weight loss, attributed to increased activity during cooler months. Assessment: * Assessment: 1. P ost-traumatic stress disorder, chronic - F43.12 2 . R estless legs syndrome - G25.81 3 . O ther insomnia - G47.09 4 . G eneralized anxiety disorder - F41.1 5 . M ajor depressive disorder, recurrent, mild - F33.0 1. Anxiety and irritability: - Patient reports improvement in anxiety and irritability after increasing sertraline dosage to 50 mg.- Noticed reduction in lip biting and aggressive thoughts.Plan:- Continue sertraline 50 mg daily.- Monitor for any side effects or changes in symptoms.- Follow up in 5 weeks to assess the need for dosage adjustment.2. Insomnia:- Patient reports significant improvement in sleep since starting Spravato and maintaining a bedtime routine.- Currently taking zolpidem as needed.Plan:- Continue zolpidem as needed for insomnia.- Encourage patient to maintain a consistent bedtime routine.- Monitor for any changes in sleep patterns or side effects.- Ensure patient has refills for zolpidem.3. Depression:- Patient reports overall improvement in mood and decrease in negative thoughts since starting sertraline and Spravato.Plan:- Continue sertraline 50 mg daily and Spravato as prescribed.- Monitor for any changes in mood or depressive symptoms.- Follow up in 5 weeks to assess the need for dosage adjustment.4. Weight loss:- Patient reports losing weight and feeling less stressed.Plan:- Encourage patient to maintain a healthy lifestyle, including regular physical activity and a balanced diet.- Monitor weight changes during follow-up visits.5. Follow-up:- Schedule a follow-up appointment for the first week of October. Plan: * Treatment: 2. O ther insomnia Continue Zolpidem Tartrate Tablet, 10 MG, 1 tablet at bedtime as needed, Oral, once a day, 30 days, 30 Tablet, Refills 3. Notes: zolpidem 10mg hs prn 3. G eneralized anxiety disorder Start Sertraline HCl Tablet, 50 MG, 1 tablet, Oral, Once a day, 30 days, 30 Tablet, Refills 3. 4. M ajor depressive disorder, recurrent, mild Notes: cont sertraline * Procedure Codes: 9 6127 BEHAV ASSMT W/SCORE & DOCD/STAND [id number] VISIT COMPLEXITY INHERENT TO ONGOING CARE RELATED TO A PATIENT'S SINGLE, SERIOUS CONDITION OR A COMPLEX CONDITION * Follow Up: 6 Weeks (Reason: f/u depression) * Billing Information: * Visit Code: 75605 OFFICE OUTPATIENT VISIT 25 MINUTES DETAILED HISTORY AND EXAM/MODERATE MEDICAL DECISION MAKING. * Procedure Codes: 15601 BEHAV ASSMT W/SCORE & DOCD/STAND INSTRUMENT. G2211 VISIT COMPLEXITY INHERENT TO ONGOING CARE RELATED TO A PATIENT'S SINGLE, SERIOUS CONDITION OR A COMPLEX CONDITION. * R PRINT INSPECTOR Sign off status: Completed true * Provider: JONNATHAN VIGIL Date: Generated for Clark lantigua/Kulwant/Javier on: 0 02/16/2025 02:11 PM CDT History and Physical Notes * HPI (History of Present Illness) Category Sub-Category Detail Notes Category Not es History of Presenting Problem Depression depression has improved with Spravato Psychotherapy kyela thompson PTSD PTSD Quality: intrus yovani unpleasant [...] staying asleep, or sl eeping too much: Not at all Feeling tired or having little energy: S everal days Poor appetite or overeating: Several day s Feeling bad about yourself o r that you are a failure, or have let yourself or your family down: Not at all Trouble concentrating on thi ngs, such as reading the newspaper or watching television: Not at all Moving or speaking so slowly that other [...] Screening Findings: P ositve Follow-Up for Depression: Em otional support education, Management of mental health treatment Suicide Risk Assessment Performed: Additional Evaluation for De pression: Psychiatric interview [...] Interpretation of Total: (5 to 9) Mild [place]-Suicide Severity Rating Scale Suicide Risk (CSRS-screener) in the past one month Have you wished you were or wished you could go to sleep and not wake up?: No in the past one month Have y ou actually had any thoughts of killing yourself?: No Have you ever done anything, started to do anything, or prepared to do anything to end your life?: No Examination Category Sub-Category Detail Notes Category [...] noted Delusions: no Hallucinations: no General Examination - Mental Status Examination: - Patient reports improved mood and decreased irritability, noting a reduction in aggressive impulses and anxiety. - Describes better sleep patterns and adherence to a bedtime routine. - Expresses satisfaction with current medication regimen, noting it has taken off the edge. - Exhibits future-oriented thinking with plans for vacation and seasonal activities. - No reported hallucinations, delusions, or suicidal ideations. - Physical Examination: - Weight: Patient reports weight loss, attributed to increased activity during cooler months.
--- OUTSIDE RECORDS SUMMARY | 2025-02-16 14:11 | XMS_ITS | Encounter Summary ---
Author Name [facility] [place] [facility] [place] Address [address] [place] [address] Care Team Providers Care Skimmer Name Role Phone IDALIA WESTON Primary Care [...] ION (PPO) [place] 2022 [id number] [phone] GILBERTKERRIE PATIENT ANTHEM [employer] [place] PREFERRED PROVIDER ORGANIZAT ION (PPO) [place] 2022 [id number] [phone] GILBERTKERRIE PATIENT AN[employer]M [employer] [place] PREFERRED PROVIDER ORGANIZAT ION (PPO) [place] 2022 [id number] [phone] GILBERTKERRIE PATIENT [employer] [place] PREFERRED PROVIDER ORGANIZAT ION (PPO) [place] 2022 [id number] [phone] KERRIE HUNT PATIENT [employer]) PRESCRIPT ION REP WAGE 2004 [id number] [phone] KERRIE HUNT PATIENT [employer]) PRESCRIPT ION RX PLAN 2004 TTSA [id number] [phone] KERRIE HUNT PATIENT Selected Encounter This section includes the information on record at [place] for the Encounter. Date/Time Encounter Type Encounter Description Reason Provider Source Jan 11, 2025 02:00 PM OFFICE O/P EST MOD 30 MIN ENDOCRINOLOGY ICD-10-CM E29.1 Testicular hypofunction JADEN MIRANDA [facility] Encounter Template Text not used by [place] Assessments - Encounter Diagnoses This section includes the primary and secondary diagnoses documented for the Encounter. Date/Time Primary/Secondary Diagnosis Diagnosis Name Provider Source Jan 20, 2025 02:54 PM PRIMARY Testicular hypofunction JADEN MIRANDA [facility] Plan of Treatment: Future Appointments (+ 6 months) and Future Tests (+/- 45 days) The Plan of Treatment section includes future care activities for the patient from all [place] [facility]. This section includes future appointments and future orders which are active, pending or scheduled. Future Appointments This section includes appointments that were scheduled to occur 6 months from the date of the Encounter, up to a maximum of 20 appointments. The data comes from all [place] treatment facilities. Appointment Date/Time Appointment Type Appointme nt Facility Name Feb 26, 2025 01:30 PM AMBULATORY - PSYCHIATRY [facility] Active, Pending, and Scheduled Orders This section includes a listing of several types of active, pending, and scheduled orders, including clinic medications orders, diagnostic test orders, procedure orders and consult orders; where the start date of the order is 45 days before the date of the Encounter or 45 days after the date of theEncounter. The data comes from all [place] treatment [facility]. Test Date/Time Test Type Test Details Facility Name Dec 03, 2024 12:00 AM Laboratory - Chemi stry Order URINE DRUG SCREEN (STL) URINE YELLOW SP [facility] Dec 29, 2024 08:00 AM Laboratory - Chemi stry Order TESTOSTERONE, FREE PANEL RED/NO-GEL SERUM SP [facility] Dec 29, 2024 08:00 AM Laboratory - Chemi stry Order CBC BLOOD SP [facility] Jan 11, 2025 12:00 AM Laboratory - Chemi stry Order TESTOSTERONE, FREE PANEL RED/NO-GEL SERUM SP [facility] Jan 11, 2025 12:00 AM Laboratory - Chemi stry Order CBC BLOOD SP [facility] Jan 11, 2025 12:00 AM Laboratory - Chemi stry Order PROST. SPECIFIC AG.(PB-STL) GOLD/RED SST SERUM SP [facility] Social History: Smoking Status (Most current) and Tobacco Use (All prior to encounter date) This section includes the most current, and the historical, smoking and tobacco- related health factors from the [place] facility where the Encounter took place. Current Smoking Status This section includes the most current smoking, or tobacco-related health factor, from the [place] facility where the Encounter took place. Date/Time Current Smoking Status Comment Facil ity Aug 19, 2024 12:13 PM VA-TOBACCO NEVER USED [facility] Encounter Notes: All associated encounter notes This section contains the clinical notes associated to the Encounter. Date/Time Encounter Note(s) Provider Source Jan 11, 2025 02:04 [facility]: LOCAL TITLE: ENDOCRINOLOGY OUTPATIENT FOLLOW UP [facility] STANDARD TITLE: ENDOCRINOLOGY OUTPATIENT NOTE DATE OF NOTE: JAN 11, 2025@14:04 ENTRY DATE: JAN 11, 2025@14:04:26 AUTHOR: JADEN MIRANDA COSIGNER: URGENCY: STATUS: COMPLETED ENDOCRINOLOGY OUTPATIENT FOLLOW UP [facility]ENDA ENDOCRINOLOGY VIRTUAL VISIT The was educated about the use of Clinical Video Telehealth for this encounter. The also understands that a video-technology is being used for this visit. The [place] consents to be seen today using Clinical Video Telehealth. Emergency Services contact [phone] Full name and last 4 of SSN verified Patient location during visit: Home [address] [place] [phone] Other: Emergency number confirmed. History of present illness: GILBERTEMMANUEL Hall is a 59yo MALE who returns for returns for f/u of hypogonadism. Endorsed low [...] Fill Active Outpatient Medications Refills Expiration 1) SILDENAFIL CITRATE 100MG TAB Qty: 18 for 90 ACTIVE Issue: 01/16/24 days Sig: TAKE ONE TABLET BY MOUTH TWO TIMES Refills: 0 Last : 01/09/25 PER WEEK NEEDED (TAKE 60 MINUTES PRIOR Expr : 01/16/25 TO SEXUAL ACTIVITY) - LIMIT 6 DOSES PER 30 DAYS 90 DAY SUPPLY Indication: FOR ERECTILE DYSFUNCTION 2) ZOLPIDEM TARTRATE 12.5MG SA TAB Qty: 30 for ACTIVE Issue: 12/03/24 30 days Sig: TAKE ONE TABLET BY MOUTH AT Refills: 2 Last : 12/17/24 BEDTIME NEEDED Expr : 06/05/25 Indication: FOR INSOMNIA VVC Physical Exam: Home vitals: GENERAL: No acute distress. Sitting comfortably Respiratory: Regular respiratory rate. Musculoskeletal: No joint deformity or effusion apparent on video Neuro: Alert and orientated SKIN: No obvious rash or ecchymosis. LABS: Comprehensive Metabolic Panel Results: SODIUM 134 [...] PANEL EO data found Assessment and plan: EMMANUEL HUNT is a 59yo here for f/u of hypogonadism #) Hypogonadism: hypogonadotropic based on labs. nl prl in 11/2022. will check labs on androgel 2 pumps daily. May need to increase dose given subtherapeutic levels. Also need to closely monitor psa given intermittent elevation. #) ED: on viagra, testosterone therapy as above,. RTC in 6 mo /es/ Jaden Miranda MD Staff Physician Endocrinology Signed: 01/11/2025 14:14 01/11/2025 ADDENDUM STATUS: COMPLETED ENDOCRINOLOGY VIRTUAL VISIT The was educated about the use of Clinical Video Telehealth for this encounter. The [place] also understands that a video-technology is being used for this visit. The consents to be seen today using Clinical Video Telehealth. Emergency Services contact [phone] Full name and last 4 of SSN verified Patient location during visit: Home [address] [place] [address] Other: Emergency number confirmed. History of present illness: EMMANUEL HUNT is a 59yo MALE who returns for f/u of hypogonadism. Endorsed low libido, ED (on viagra), and fatigue. Has 2 confirmed total T levels with free T also low. started androgel 2 pumps daily in 01/2023 and notes mild but has not achieved therapeutic levels. off t since 09/2024 and has not noted any difference in symptoms. ROS: + per hpi, otherwise negative in detail Past Medical History: 1) Obesity 2) Polyp of colon 3) Primary insomnia 4) Gastroesophageal reflux disease 5) Posttraumatic stress disorder 6) Polyarthralgia 7) Major depressive disorder 8) Generalized anxiety disorder 9) History of alcohol abuse 10) Opioid dependence in remission 11) Exposure to potentially hazardous substance Medications: Active Outpatient Medications (excluding Supplies): Issue Date Status Last Fill Active Outpatient Medications Refills Expiration 1) SILDENAFIL CITRATE 100MG TAB Qty: 18 for 90 ACTIVE Issue: 01/16/24 days Sig: TAKE ONE TABLET BY MOUTH TWO TIMES Refills: 0 Last : 01/09/25 PER WEEK NEEDED (TAKE 60 MINUTES PRIOR Expr : 01/16/25 TO SEXUAL ACTIVITY) - LIMIT 6 DOSES PER 30 DAYS 90 DAY SUPPLY Indication: FOR ERECTILE DYSFUNCTION 2) ZOLPIDEM TARTRATE 12.5MG SA TAB Qty: 30 for ACTIVE Issue: 12/03/24 30 days Sig: TAKE ONE TABLET BY MOUTH AT Refills: 2 Last : 12/17/24 BEDTIME NEEDED Expr : 06/05/25 Indication: FOR INSOMNIA Issue Date Status Last Fill Pending Outpatient Medications Refills Expiration 1) TESTOSTERONE CYP 200MG/ML 1ML IN OIL Qty: PENDING 2 Sig: INJECT 200MG/1ML DEEP INTRAMUSCULARLY Refills: 0 EVERY OTHER WEEK Indication: FOR LOW TESTOSTERONE 3 Total Medications VVC Physical Exam: GENERAL: No acute distress. Sitting comfortably Respiratory: Regular respiratory rate. Musculoskeletal: No joint deformity or effusion apparent on video Neuro: Alert and orientated SKIN: No obvious rash or ecchymosis. LABS: Comprehensive Metabolic Panel Results: SODIUM 134 [...] EO data found Assessment and plan: GILBERTEMMANUEL A is a 59yo here for f/u of hypogonadism #) Hypogonadism: hypogonadotropic based on labs. nl prl in 11/2022. will transition to 200mg IM testosterone every other week. Repeat midpoint testosteorne, CBC, and PSA in 2 mo. #) ED: on viagra, testosterone therapy as above. RTC in 6 mo /lu/ Jaden Miranda MD Staff Physician Endocrinology Signed: 01/11/2025 14:19 [facility]
--- OUTSIDE RECORDS SUMMARY | 2025-02-16 14:11 | XMS_ITS | Encounter Summary ---
Author Name [facility] [place] Address [address] [place] [address] Care Team Providers Care Shift Mgr Name Role Phone IDALIA WESTON Primary Care [...] ION (PPO) [employer] [place] [place] 2022 [id number] [phone] GILBERTKERRIE PATIENT AN[employer]M [employer] [place] PREFERRED PROVIDER ORGANIZAT ION (PPO) [employer] [place] 2022 [id number] [phone] GILBERTKERRIE PATIENT AN[employer] [employer] [place] PREFERRED PROVIDER ORGANIZAT ION (PPO) [employer] [place] 2022 [id number] [phone] GILBERTKERRIE PATIENT [employer] [place] PREFERRED PROVIDER ORGANIZAT ION (PPO) [employer] [place] 2022 [id number] [phone] KERRIE HUNT PATIENT [employer]) PRESCRIPT ION REP WAGE 2004 [id number] [phone] KERRIE HUNT PATIENT [employer]) PRESCRIPT ION RX PLAN 2004 TTSA [id number] [phone] KERRIE HUNT PATIENT Selected Encounter This section includes the information on record at [place] for the Encounter. Date/Time Encounter Type Encounter Description Reason Provider Source April 02, 2024 11:00 AM OFFICE O/P EST MOD 30 MIN [facility] - IND ICD-10-CM F43.12 Post-traumatic stress disorder, chronic LUCIANOMARQUISE Radha [facility] Encounter Template Text not used by [place] Assessments - Encounter Diagnoses This section includes the primary and secondary diagnoses documented for the Encounter. Date/Time Primary/Secondary Diagnosis Diagnosis Name Provider Source April 02, 2024 11:32 AM PRIMARY Post-traumatic stress disorder, chronic [facility] Radha [facility] April 02, 2024 11:32 AM SECONDARY Alcohol abuse, in remission LUCIANOMARQUISE [facility] April 02, 2024 11:32 AM SECONDARY Generalized anxiety disorder [facility]ha [facility] April 02, 2024 11:32 AM SECONDARY Major depressive disorder, single episode, unspecified [facility] Radha [facility] Plan of Treatment: Future Appointments (+ 6 months) and Future Tests (+/- 45 days) The Plan of Treatment section includes future care activities for the patient from all [place] treatmentfacilities. This section includes future appointments and future orders which are active, pending or scheduled. Future Appointments This section includes appointments that were scheduled to occur 6 months from the date of the Encounter, up to a maximum of 20 appointments. The data comes from all [place] treatment facilities. Appointment Date/Time Appointment Type Appointme nt Facility Name Jun 22, 2024 11:00 AM AMBULATORY - MEDICINE [facility] Jun 25, 2024 10:00 AM AMBULATORY - PSYCHIATRY [facility] Encounter Notes: All associated encounter notes This section contains the clinical notes associated to the Encounter. Date/Time Encounter Note(s) Provider Source April 02, 2024 11:22 AM PSYCHIATRY NOTE: LOCAL TITLE: PSYCHIATRY [facility] STANDARD TITLE: PSYCHIATRY NOTE DATE OF NOTE: APRIL 02, 2024@11:22 ENTRY DATE: APRIL 02, 2024@11:22:32 AUTHOR: MARQUISE WOLFIGNER: URGENCY: STATUS: COMPLETED [facility] Psychiatry Progress Note - Medication Management APRIL 02, 2024 IDENTIFYING INFORMATION Name..................YANI HUNT Age...................58 Sex...................MALE SSN...................[id number] Service Connection.... Service Connected: 50% Rated Disabilities: POST-TRAUMATIC STRESS DISORDER (50% SC) EMMANUEL HUNT is a , unemployed, domiciled, male [employer] with a history most consistent with posttraumatic [...] reviewed. This appointment was conducted by clinical telehealth. Telehealth Consent: Lucas verbally consented to a clinical audio telehealth follow-up appointment. Address: [address] [place] [address] Phone number: Survey: Patient alone Lock: The virtual conference room was locked. Audio only, video not working 1) Obesity 2) Polyp of colon 3) [...] 09, 2023@11:04:11 INTERVAL HISTORY Per last visit: 03/04/2024 Today, insomnia appears unimproved with sustained-release zolpidem. However, he appears to be tolerating it well with no noticeable side effects. Symptoms are also confounded by recent psychosocial stress regarding his [id number]-gn-swa's health. We will increase zolpidem at this time. He is also considering/discussing Spravato/TMS for depression with his private psychiatrist. He plans to move all of his mental health care to the [place] soon. Today: He says that he has been feeling content and better now than in quite some time. With the higher dose of zolpidem, he achieves better sleep. He denies any significant grogginess in the morning or other side effects. He does describe making food rarely around 2 AM, adding that he has aware of his surroundings but that this is abnormal behavior. His says that he has been doing this throughout their life, and it does not appear to be related to zolpidem. It also does not appear to be worse since starting zolpidem or increasing it. When he does use zolpidem, he can sleep from about 11 PM until about 4 AM (note: Previously about 3 hours or less). He feels that his energy throughout the day is better, although fatigue/physical pain remain. He is no longer napping due to his work schedule. He is happy to be back at work after about 6 months of relief. 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 He continues to have some anxiety at night regarding various psychosocial stressors, but he is working on sleep hygiene, box breathing, and reading to help calm himself down before bedtime. His appetite is intact, and he has lost about 8 pounds since returning to work. He denies uncontrolled anxiety, depression, or other significant mental health concerns today. He denies suicidal ideation, homicidal ideation, and hallucinations. He denies alcohol abuse (i.e. usually does not drink, socially/in moderation) and drug use. He continues to chew tobacco (i.e. 3-4 cans a month). Supportive Psychotherapy/Psychoeducation: *N/A Compliance: *Zolpidem SR 12.5 mg nightly as needed: yes Other providers: *Testosterone supplement: Yes Review of systems: Negative except where noted [...] poor concentration, and passive suicidal ideation. His denominational beliefs have precluded any preparatory behavior or active suicidal thoughts from developing. With regard to anxiety, he has described difficulty controlling worry regarding various areas of life (e.g. finances, economics, politics, marriage/relationship, children) leading to irritability, insomnia, poor concentration/focus, and restlessness. Overall depression/anxiety symptoms appear to have been exacerbated by his exposure to traumatic/disturbing content while in the [employer]. He has described recurrent symptoms consistent with [...] and prosody Psychomotor: Unable to assess Mood: Content Affect: Unable to assess Thought Process: logical, linear, goal-directed Thought Content: Denies suicidal or homicidal ideation; no clear delusions appreciated on exam Perception: Denies active hallucinations Cognition: alert and oriented Fund [...] seeking, beliefs against suicide, cognitive flexibility) *Reports denominational or spiritual beliefs/connections (Congregational) *Connections to cultural groups (e.g. ethnic, denominational, community) *Strong desire to live Risk Factors [...] in Sustained Remission (2014) Today, he reports improved sleep quantity/quality and energy/productivity after increasing zolpidem and returning to work. He also denies any uncontrolled anxiety/depression or other mental health concerns today. He would like to continue his current dose of zolpidem and continue to monitor for mood stability. He is not planning to pursue TMS/Spravato at this time (note: Previously discussed with outside provider). TREATMENT PLAN Medications: *Zolpidem SA 12.5 mg nightly as needed *Started IR around 2019, trialed up to 10 mg (1.5 hours) *Last increased 02/2024, beneficial (5 hours) Other providers: *Receiving testosterone supplementation Referrals, Labs, and Imaging: *Urine drug screen, reminded Lifestyle: *Taking vitamin D supplement Return to Clinic: *3 months REMINDERS Last mental health treatment plan created/renewed..... [...] spent in encounter (chart review, interview, documentation/orders): 33 min /lu/ MARQUISE WOLF Staff Physician / Psychiatrist [facility] Signed: 04/02/2024 11:32 LUCIANO,MARQUISE REARDON [facility]
--- OUTSIDE RECORDS SUMMARY | 2025-02-16 14:11 | XMS_ITS | Continuity of Care Document ---
Author Name [facility] Organization [facility] Care Team Providers Care Dental Services Director Name Role Phone [facility] Unavailable Unavailable Problems Combined list of problems from [facility] and [facility] facilities. It does not include entries that were removed or entered in error. Problem Status Onset Date Problem Type Date of Resolution Comments Source Exposure to potentially hazardous substance Active Condition [facility] Gastroesophageal reflux disease Active Condition [facility] Generalized anxiety disorder Active Condition [facility] History of alcohol abuse Active Condition [facility] Major depressive disorder Active Condition [facility] Obesity Active Condition [facility] Opioid dependence in remission Active Condition [facility] Polyarthralgia Active Condition [facility] Polyp of colon Active Condition Jan Entered By: ANDRZEJ CORTEZ Comment: s/p colonosocpy in 2015,f/u advised in 5 years [facility] Posttraumatic stress disorder Active Condition [facility] [place] [facility] Primary insomnia Active Condition [facility] [place] [facility] Diagnosis: ICD-10-CM E29.1 Testicular hypofunction Active Diagnosis [facility] Diagnosis: ICD-10-CM F43.12 Post-traumatic stress disorder, chronic Active Diagnosis [facility] Diagnosis: ICD-10-CM Z56.0 Unemployment, unspecified Active Diagnosis [facility] Diagnosis: ICD-10-CM E66.9 Obesity, unspecified Active Diagnosis [facility] Medications Combined list of outpatient medications from [facility] and [facility] facilities.Medications provided include 1) outpatient medications from the last 15 months, and 2) patient-reported medications. Medication Details Route Status Patient Instructions Prescription Expires Prescription Number Last Dispense Date Ordering Provider Order Date Order Qty Source NAPROXEN 500MG TAB TAKE ONE TABLET BY MOUTH TWICE DAILY NEEDED FOR PAIN AND/OR INFLAMMA TION. TAKE WITH FOOD. ORAL 08/14/2024 [id number] [facility] 2022 90 [facility] SILDENAFIL CITRATE 100MG TAB TAKE ONE TABLET BY MOUTH TWO TIMES PER WEEK NEEDED FOR ERECTILE DYSFUNCT ION (TAKE 60 MINUTES PRIOR TO SEXUAL ACTIVITY ) - LIMIT 6 DOSES PER 30 DAYS 90 DAY SUPPLY ORAL SUSPEND ED 02/17/2026 [id number] [facility] 2024 18 [facility] SILDENAFIL CITRATE 100MG TAB TAKE ONE TABLET BY MOUTH TWO TIMES PER WEEK NEEDED FOR ERECTILE DYSFUNCT ION (TAKE 60 MINUTES PRIOR TO SEXUAL ACTIVITY ) - LIMIT 6 DOSES PER 30 DAYS 90 DAY SUPPLY ORAL DISCONT INUED 01/16/2025 [id number] [facility] 2023 18 [facility] SILDENAFIL CITRATE 100MG TAB TAKE ONE TABLET BY MOUTH TWO TIMES PER WEEK NEEDED FOR ERECTILE DYSFUNCT ION (TAKE 60 MINUTES PRIOR TO SEXUAL ACTIVITY ) - LIMIT 6 DOSES PER 30 DAYS 90 DAY SUPPLY ORAL DISCONT INUED 05/09/2024 [id number] [facility] 2022 18 [facility] TESTOSTERON E 1.62% 20.25MG/PUM P GEL,TOP APPLY 2 PUMPS (40.5MG) TO AFFECTED AREA(S) ONCE A DAY FOR LOW TESTOSTE SHAY APPLY TO CLEAN DRY SKIN OF UPPER ARMS OR UPPER SHOULDER ONLY TOPICA L DISCONT INUED 07/04/2024 [id number] 4 Lou MIRANDA T 2023 1 [facility] DIVISIO N TESTOSTERON E 1.62% 20.25MG/PUM P GEL,TOP APPLY 2 PUMPS (40.5MG) TO AFFECTED AREA(S) ONCE A DAY FOR LOW TESTOSTE SHAY APPLY TO CLEAN DRY SKIN OF UPPER ARMS OR UPPER SHOULDER ONLY TOPICA L 12/10/2024 [id number] 4 Lou MIRANDA T [address] [place] [address] DIVISIO N TESTOSTERON E 1.62% 20.25MG/PUM P GEL,TOP APPLY 2 PUMPS (40.5MG) TO AFFECTED AREA(S) ONCE A DAY FOR LOW TESTOSTE SHAY APPLY TO CLEAN DRY SKIN OF UPPER ARMS OR UPPER SHOULDER ONLY TOPICA L 01/04/2024 [id number] 4 Lou MIRANDA T 2022 1 [facility] [employer] N TESTOSTERON E CYPIONATE 200MG/ML INJ,1ML (IN OIL) INJECT 200MG/1M L DEEP INTRAMUS CULARLY EVERY OTHER WEEK FOR LOW TESTOSTE SHAY INTRAM USCULA R SUSPEND ED 07/14/2025 [id number] 5 Lou MIRANDA T 2024 2 [facility] DIVISIO N ZOLPIDEM TARTRATE 10MG TAB TAKE ONE TABLET BY MOUTH AT BEDTIME NEEDED FOR INSOMNIA (TAKE IMMEDIAT LYDIA BEFORE BEDTIME DUE TO RAPID ONSET OF ACTION) ORAL DISCONT INUED BY PROVIDE R 06/18/2024 [id number] 4 GRABIEL PATEL N 2023 30 [facility] DIVISIO N ZOLPIDEM TARTRATE 12.5MG TAB,SA TAKE ONE TABLET BY MOUTH AT BEDTIME NEEDED FOR INSOMNIA ORAL ACTIVE 06/05/2025 [id number] 5 MARQUISE WOLF 2024 30 [facility] DIVISIO N ZOLPIDEM TARTRATE 12.5MG TAB,SA TAKE ONE TABLET BY MOUTH AT BEDTIME NEEDED FOR INSOMNIA ORAL DISCONT INUED (EDIT) 03/24/2025 [id number] 5 ABBIE SANTANA 2023 30 [facility] DIVISIO N ZOLPIDEM TARTRATE 12.5MG TAB,SA TAKE ONE TABLET BY MOUTH AT BEDTIME NEEDED ORAL 09/04/2024 [id number] 4 MARQUISE WOLF 2023 30 [facility] DIVISIO N ZOLPIDEM TARTRATE 6.25MG TAB,SA TAKE ONE TABLET BY MOUTH AT BEDTIME NEEDED FOR INSOMNIA ORAL DISCONT INUED (EDIT) 07/16/2024 [id number] 4 MARQUISE WOLF 2023 30 [facility] DIVISIO N Immunizations Combined list of available immunizations from the Department of Defense and Veterans Affairs facilities. Immunization Series Date Given Administered By Site Reaction Lot Number CVX Code Drug Elevated Guard Status Comments Source INFLUENZA, UNSPECIFIED FORMULATION 2020 88 complet ed [facility] Results Combined list of recent chemistry, hematology and other laboratory results from Department of Defense and Veterans Affairs, ranging from 15 months to all on record, depending upon the facility. Order Name Results Value Reference Range Date Interpretation Specimen Comments Source PROST. SPECIFIC AG.(PB-ST L) PROSTATE SPECIFIC AG [MASS/VOLUM E] IN SERUM OR PLASMA 1.365 ng/mL 0 - 4 01/02 Specimen Type: SERUM Comment: The listed sex of this patient may not be a typical indication for this test. Therefore, reference ranges or interpretiv e criteria listed may not be valid. Clinical correlation suggested. Ordering Provider: PLACIDO MIRANDA T Report Released Date/Time: Dec 30, 2023 11:43 AM Reporting Lab: [facility] DIVISION [facility] [address] Performing Lab: [address] [phone] [place] [address] DIVISION TESTOSTER ONE, FREE PANEL TESTOSTERON E [MASS/VOLUM E] IN SERUM OR PLASMA 221 ng/dL 250 - 1100 12/11 L Specimen Type: SERUM Comment: For additional information , please refer to http://educ ation.Gift Card Combo .com/faq/ TotalTestos teroneLCMSM [id number] (This link is being provided for information al/ educational purposes only.) This test was developed and its analytical performance characteris tics have been determined by [facility] [place], [place]. It has not been cleared or approved by the U.S. Food and Drug Administrat ion. This assay has been validated pursuant to the CLIA regulations and is used for clinical purposes. Test Performed by [facility], [facility] [place], [address] [place], [place] Reed Beckett M.D., Ph.D., Director of Laboratorie s , CLIA [id number] Ordering Provider: SOCO LIM Report Released Date/Time: Dec 11, 2023 10:28 AM Reporting Lab: [address] [address] Performing Lab: [address] [facility] TESTOSTER ONE, FREE PANEL ALBUMIN [MASS/VOLUM E] IN SERUM OR PLASMA 4.3 g/dL 3.6 - 5.1 12/11 Specimen Type: SERUM Comment: For additional information , please refer to http://educ ation.Gift Card Combo .Dakim/faq/ TotalTestos teroneLCMSM [id number] (This link is being provided for information al/ educational purposes only.) This test was developed and its analytical performance characteris tics have been determined by [facility] [place]. It has not been cleared or approved by the U.S. Food and Drug Administrat ion. This assay has been validated pursuant to the CLIA regulations and is used for clinical purposes. Test Performed by [facility], [facility], [address] [place] [address] Reed Beckett M.D., Ph.D., Director of Laboratorie s , CLIA [id number] Ordering Provider: SOCO LIM Report Released Date/Time: Dec 11, 2023 10:28 AM Reporting Lab: [address] [address] Performing Lab: [address] [facility] TESTOSTER ONE, FREE PANEL TESTOSTERON E FREE [MOLES/VOLU ME] IN SERUM OR PLASMA 43.3 pg/mL 46.0 - 224.0 12/11 L Specimen Type: SERUM Comment: For additional information , please refer to http://TopShelf Clothes.Gift Card Combo .Dakim/faq/ TotalTestos teroneLCMSM [id number] (This link is being provided for information al/ educational purposes only.) This test was developed and its analytical performance characteris tics have been determined by [employer] [place]. It has not been cleared or approved by the U.S. Food and Drug Administrat ion. This assay has been validated pursuant to the CLIA regulations and is used for clinical purposes. Test Performed by [facility], [address] [place], [place] Reed Beckett M.D., Ph.D., Director of Laboratorie s , CLIA [id number] Ordering Provider: SOCO LIM Report Released Date/Time: Dec 11, 2023 10:28 AM Reporting Lab: [facility]ISION [address] [place] [address] Performing Lab: [facility] [id number] [place] [address] [facility] TESTOSTER ONE, FREE PANEL TESTOSTERON E.FREE+WEAK LY BOUND [MASS/VOLUM E] IN SERUM OR PLASMA 85.4 ng/dL 110.0 - 575.0 12/11 L Specimen Type: SERUM Comment: For additional information , please refer to http://TopShelf Clothes.Gift Card Combo .Dakim/faq/ TotalTestos teroneLCMSM [id number] (This link is being provided for information al/ educational purposes only.) This test was developed and its analytical performance characteris tics have been determined by [employer] [place]. It has not been cleared or approved by the U.S. Food and Drug Administrat ion. This assay has been validated pursuant to the CLIA regulations and is used for clinical purposes. Test Performed by [facility], [address] [place], [place] Reed Beckett M.D., Ph.D., Director of Laboratorie s , CLIA [id number] Ordering Provider: SOCO LIM Report Released Date/Time: Dec 11, 2023 10:28 AM Reporting Lab: [place] [address] [facility] [address] Performing Lab: [facility] [id number] [place] [address] [facility] TESTOSTER ONE, FREE PANEL SEX HORMONE BINDING GLOBULIN [MOLES/VOLU ME] IN SERUM OR PLASMA 18 nmol/L 22 - 77 12/11 L Specimen Type: SERUM Comment: For additional information , please refer to http://educ ation.Gift Card Combo .com/faq/ TotalTestos teroneLCMSM [id number] (This link is being provided for information al/ educational purposes only.) This test was developed and its analytical performance characteris tics have been determined by [facility] [place]. It has not been cleared or approved by the U.S. Food and Drug Administrat ion. This assay has been validated pursuant to the CLIA regulations and is used for clinical purposes. Test Performed by [facility], [facility], [address] [place] [address] Reed Beckett M.D., Ph.D., Director of Laboratorie s , CLIA [id number] Ordering Provider: SOCO LIM Report Released Date/Time: Dec 11, 2023 10:28 AM Reporting Lab: [place] [address] [facility] [address] Performing Lab: [facility] [id number] [place] [address] [facility] PROST. SPECIFIC AG.(PB-ST L) PROSTATE SPECIFIC AG [MASS/VOLUM E] IN SERUM OR PLASMA 4.212 ng/mL 0 - 4 12/11 HH Specimen Type: SERUM Comment: The listed sex of this patient may not be a typical indication for this test. Therefore, reference ranges or interpretiv e criteria listed may not be valid. Clinical correlation suggested. Ordering Provider: SOCO LIM Report Released Date/Time: Dec 11, 2023 10:28 AM Reporting Lab: [address] [address] Performing Lab: [address] [address] [facility] CBC LEUKOCYTES [#/VOLUME] IN BLOOD BY AUTOMATED COUNT 5.8 10*3/u L 3.6 - 11.2 12/11 Specimen Type: BLOOD No comment entered. Ordering Provider: SOCO LIM Report Released Date/Time: Dec 11, 2023 10:28 AM Reporting Lab: [address] [address] Performing Lab: [address] [address] [facility] CBC ERYTHROCYTE S [#/VOLUME] IN BLOOD BY AUTOMATED COUNT 4.94 10*6/u L 4.10 - 5.70 12/11 Specimen Type: BLOOD No comment entered. Ordering Provider: SOCO LIM Report Released Date/Time: Dec 11, 2023 10:28 AM Reporting Lab: [address] [address] Performing Lab: [address] [address] [facility] CBC HEMOGLOBIN [MASS/VOLUM E] IN BLOOD 15.6 g/dL 13.1 - 16.8 12/11 Specimen Type: BLOOD No comment entered. Ordering Provider: SOCO LIM Report Released Date/Time: Dec 11, 2023 10:28 AM Reporting Lab: [address] [address] Performing Lab: [address] [address] [facility] CBC HEMATOCRIT [VOLUME FRACTION] OF BLOOD 45.3 38.2 - 48.4 12/11 Specimen Type: BLOOD No comment entered. Ordering Provider: SOCO LIM Report Released Date/Time: Dec 11, 2023 10:28 AM Reporting Lab: [address] [address] Performing Lab: [address] [address] [facility] CBC MCV [ENTITIC VOLUME] BY AUTOMATED COUNT 91.7 fL 80.0 - 100.0 12/11 Specimen Type: BLOOD No comment entered. Ordering Provider: SOCO LIM Report Released Date/Time: Dec 11, 2023 10:28 AM Reporting Lab: [place] [phone] Performing Lab: [address] [phone] [address] CBC MCH [ENTITIC MASS] BY AUTOMATED COUNT 31.6 pg 27.0 - 34.0 12/11 Specimen Type: BLOOD No comment entered. Ordering Provider: SOCO LIM Report Released Date/Time: Dec 11, 2023 10:28 AM Reporting Lab: [address] [address] Performing Lab: [address] [address] [facility] CBC MCHC [MASS/VOLUM E] BY AUTOMATED COUNT 34.4 g/dL 33.0 - 36.0 12/11 Specimen Type: BLOOD No comment entered. Ordering Provider: SOCO LIM Report Released Date/Time: Dec 11, 2023 10:28 AM Reporting Lab: [place] [phone] Performing Lab: [address] [address] [facility] CBC PLATELETS [#/VOLUME] IN BLOOD BY AUTOMATED COUNT 290 10*3/u L 150 - 400 12/11 Specimen Type: BLOOD No comment entered. Ordering Provider: SOCO LIM Report Released Date/Time: Dec 11, 2023 10:28 AM Reporting Lab: [facility] [address] [facility] [address] Performing Lab: [facility] [address] [place] [phone] [facility] CBC PLATELET MEAN VOLUME [ENTITIC VOLUME] IN BLOOD BY AUTOMATED COUNT 9.6 fL 7.5 - 11.2 12/11 Specimen Type: BLOOD No comment entered. Ordering Provider: SOCO LIM Report Released Date/Time: Dec 11, 2023 10:28 AM Reporting Lab: [address] [address] Performing Lab: [address] [address] [facility] CBC ERYTHROCYTE DISTRIBUTIO N WIDTH [RATIO] BY AUTOMATED COUNT 12.3 11.8 - 15.1 12/11 Specimen Type: BLOOD No comment entered. Ordering Provider: SOCO LIM Report Released Date/Time: Dec 11, 2023 10:28 AM Reporting Lab: [facility] [address] [facility] [address] Performing Lab: [facility] [address] [place] [address] [facility] CBC LYMPHOCYTES /100 LEUKOCYTES IN BLOOD BY AUTOMATED COUNT 27 12/11 Specimen Type: BLOOD No comment entered. Ordering Provider: SOCO LIM Report Released Date/Time: Dec 11, 2023 10:28 AM Reporting Lab: [facility] [address] [facility] [address] Performing Lab: [address] [address] [facility] CBC MONOCYTES/1 00 LEUKOCYTES IN BLOOD BY AUTOMATED COUNT 11 12/11 Specimen Type: BLOOD No comment entered. Ordering Provider: SOCO LIM Report Released Date/Time: Dec 11, 2023 10:28 AM Reporting Lab: [facility] [address] [facility] [address] Performing Lab: [facility] [address] [facility] [address] [facility] CBC NEUTROPHILS /100 LEUKOCYTES IN BLOOD BY AUTOMATED COUNT 56 12/11 Specimen Type: BLOOD No comment entered. Ordering Provider: SOCO LIM Report Released Date/Time: Dec 11, 2023 10:28 AM Reporting Lab: [facility] [address] [facility] [address] Performing Lab: [place] [address] [facility] [address] [facility] CBC EOSINOPHILS /100 LEUKOCYTES IN BLOOD BY AUTOMATED COUNT 4 12/11 Specimen Type: BLOOD No comment entered. Ordering Provider: SOCO LIM Report Released Date/Time: Dec 11, 2023 10:28 AM Reporting Lab: [place] [address] [facility] [address] Performing Lab: [place] [address] [facility] [address] [facility] CBC BASOPHILS/1 00 LEUKOCYTES IN BLOOD BY AUTOMATED COUNT 1 12/11 Specimen Type: BLOOD No comment entered. Ordering Provider: SOCO LIM Report Released Date/Time: Dec 11, 2023 10:28 AM Reporting Lab: [place] [address] [facility] [address] Performing Lab: [facility] [address] [facility] [address] [facility] CBC LYMPHOCYTES [#/VOLUME] IN BLOOD BY AUTOMATED COUNT 1.59 10*3/u L 0.77 - 4.50 12/11 Specimen Type: BLOOD No comment entered. Ordering Provider: SOCO LIM Report Released Date/Time: Dec 11, 2023 10:28 AM Reporting Lab: [address] [address] Performing Lab: [facility] [address] [facility] [address] [facility] CBC MONOCYTES [#/VOLUME] IN BLOOD BY AUTOMATED COUNT 0.64 10*3/u L 0.19 - 0.80 12/11 Specimen Type: BLOOD No comment entered. Ordering Provider: SOCO LIM Report Released Date/Time: Dec 11, 2023 10:28 AM Reporting Lab: [address] [address] Performing Lab: [address] [address] [facility] CBC NEUTROPHILS [#/VOLUME] IN BLOOD BY AUTOMATED COUNT 3.29 10*3/u L 2.10 - 8.00 12/11 Specimen Type: BLOOD No comment entered. Ordering Provider: SOCO LIM Report Released Date/Time: Dec 11, 2023 10:28 AM Reporting Lab: [address] [address] Performing Lab: [address] [address] [facility] CBC EOSINOPHILS [#/VOLUME] IN BLOOD BY AUTOMATED COUNT 0.24 10*3/u L 0.00 - 0.60 12/11 Specimen Type: BLOOD No comment entered. Ordering Provider: SOCO LIM Report Released Date/Time: Dec 11, 2023 10:28 AM Reporting Lab: [address] [address] Performing Lab: [address] [address] [facility] CBC BASOPHILS [#/VOLUME] IN BLOOD BY AUTOMATED COUNT 0.05 10*3/u L 0.00 - 0.20 12/11 Specimen Type: BLOOD No comment entered. Ordering Provider: SOCO LIM Report Released Date/Time: Dec 11, 2023 10:28 AM Reporting Lab: [facility] [address] [address] Performing Lab: [address] [address] [facility] TESTOSTER ONE, FREE PANEL TESTOSTERON E [MASS/VOLUM E] IN SERUM OR PLASMA 98 ng/dL 250 - 1100 05/09 L Specimen Type: SERUM Comment: For additional information , please refer to http://educ Keen Impressions.BestBoy Keyboard/faq/ TotalTestos teroneLCMSM [id number] (This link is being provided for information al/ educational purposes only.) This test was developed and its analytical performance characteris tics have been determined by [facility] [place], [place]. It has not been cleared or approved by the U.S. Food and Drug Administrat ion. This assay has been validated pursuant to the CLIA regulations and is used for clinical purposes. Test Performed by [facility], [employer] [facility] [place], [address] [place] [address] Reed Beckett M.D., Ph.D., Director of Laboratorie s , CLIA [id number] Ordering Provider: PLACIDO MIRANDA Report Released Date/Time: Feb 05, 2023 09:31 AM Reporting Lab: [address] [address] Performing Lab: [address] [facility] TESTOSTER ONE, FREE PANEL ALBUMIN [MASS/VOLUM E] IN SERUM OR PLASMA 4.4 g/dL 3.6 - 5.1 05/09 Specimen Type: SERUM Comment: For additional information , please refer to http://TopShelf Clothes.Gift Card Combo .Dakim/faq/ TotalTestos teroneLCMSM [id number] (This link is being provided for information al/ educational purposes only.) This test was developed and its analytical performance characteris tics have been determined by [employer] [place]. It has not been cleared or approved by the U.S. Food and Drug Administrat ion. This assay has been validated pursuant to the CLIA regulations and is used for clinical purposes. Test Performed by [facility] [employer] [place], [address] [place] [address] Reed Beckett M.D., Ph.D., Director of Laboratorie s , CLIA [id number] Ordering Provider: PLACIDO MIRANDA IN T Report Released Date/Time: Feb 05, 2023 09:31 AM Reporting Lab: [address] [address] Performing Lab: [address] [facility] TESTOSTER ONE, FREE PANEL TESTOSTERON E FREE [MOLES/VOLU ME] IN SERUM OR PLASMA 21.2 pg/mL 46.0 - 224.0 05/09 L Specimen Type: SERUM Comment: For additional information , please refer to http://educ ation.Gift Card Combo .Dakim/faq/ TotalTestos teroneLCMSM [id number] (This link is being provided for information al/ educational purposes only.) This test was developed and its analytical performance characteris tics have been determined by [facility] [place]. It has not been cleared or approved by the U.S. Food and Drug Administrat ion. This assay has been validated pursuant to the CLIA regulations and is used for clinical purposes. Test Performed by [facility] [place], [address] [place] [address] Reed Beckett M.D., Ph.D., Director of Laboratorie s , CLIA [id number] Ordering Provider: PLACIDO MIRANDA IN T Report Released Date/Time: Feb 05, 2023 09:31 AM Reporting Lab: [address] [address] Performing Lab: [address] [facility] TESTOSTER ONE, FREE PANEL TESTOSTERON E.FREE+WEAK LY BOUND [MASS/VOLUM E] IN SERUM OR PLASMA 42.7 ng/dL 110.0 - 575.0 05/09 L Specimen Type: SERUM Comment: For additional information , please refer to http://educ Collibra/faq/ TotalTestos teroneLCMSM [id number] (This link is being provided for information al/ educational purposes only.) This test was developed and its analytical performance characteris tics have been determined by [facility], [place]. It has not been cleared or approved by the U.S. Food and Drug Administrat ion. This assay has been validated pursuant to the CLIA regulations and is used for clinical purposes. Test Performed by [facility] [place], [address] [place] [address] Reed Beckett M.D., Ph.D., Director of Laboratorie s , CLIA [id number] Ordering Provider: PLAICDO MIRANDA T Report Released Date/Time: Feb 05, 2023 09:31 AM Reporting Lab: [facility] [address] [facility] [address] Performing Lab: [facility] [address] [place] [address] [facility] TESTOSTER ONE, FREE PANEL SEX HORMONE BINDING GLOBULIN [MOLES/VOLU ME] IN SERUM OR PLASMA 14 nmol/L 22 - 77 05/09 L Specimen Type: SERUM Comment: For additional information , please refer to http://GoNetYourself/faq/ TotalTestos teroneLCMSM [id number] (This link is being provided for information al/ educational purposes only.) This test was developed and its analytical performance characteris tics have been determined by [employer] [place], [place]. It has not been cleared or approved by the U.S. Food and Drug Administrat [employer]. This assay has been validated pursuant to the CLIA regulations and is used for clinical purposes. Test Performed by [facility], [employer] [place], [address] [place], [place] Reed Beckett M.D., Ph.D., Director of Laboratorie s , [place] [id number] Ordering Provider: PLACIDO MIRANDA IN T Report Released Date/Time: Feb 05, 2023 09:31 AM Reporting Lab: [address] [address] Performing Lab: [address] [facility] PROST. SPECIFIC AG.(PB-ST L) PROSTATE SPECIFIC AG [MASS/VOLUM E] IN SERUM OR PLASMA 0.809 ng/mL 0 - 4 05/09 Specimen Type: SERUM Comment: The listed sex of this patient may not be a typical indication for this test. Therefore, reference ranges or interpretiv e criteria listed may not be valid. Clinical correlation suggested. Ordering Provider: TALIB WESTON I Report Released Date/Time: May 09, 2023 11:15 AM Reporting Lab: [address] [address] Performing Lab: [address] [phone] CBC LEUKOCYTES [#/VOLUME] IN BLOOD BY AUTOMATED COUNT 6.3 10*3/u L 3.6 - 11.2 05/09 Specimen Type: BLOOD No comment entered. Ordering Provider: PLACIDO MIRANDA IN T Report Released Date/Time: Feb 05, 2023 09:31 AM Reporting Lab: [address] [address] Performing Lab: [address] [address] [address] CBC ERYTHROCYTE S [#/VOLUME] IN BLOOD BY AUTOMATED COUNT 5.01 10*6/u L 4.10 - 5.70 05/09 Specimen Type: BLOOD No comment entered. Ordering Provider: PLACIDO MIRANDA IN T Report Released Date/Time: Feb 05, 2023 09:31 AM Reporting Lab: [place] [phone] Performing Lab: [address] [address] [facility] CBC HEMOGLOBIN [MASS/VOLUM E] IN BLOOD 16.2 g/dL 13.1 - 16.8 05/09 Specimen Type: BLOOD No comment entered. Ordering Provider: PLACIDO MIRANDA IN T Report Released Date/Time: Feb 05, 2023 09:31 AM Reporting Lab: [address] [address] Performing Lab: [address] [address] [facility] CBC HEMATOCRIT [VOLUME FRACTION] OF BLOOD 46.2 38.2 - 48.4 05/09 Specimen Type: BLOOD No comment entered. Ordering Provider: PLACIDO MIRANDA IN T Report Released Date/Time: Feb 05, 2023 09:31 AM Reporting Lab: [address] [address] Performing Lab: [address] [address] [facility] CBC MCV [ENTITIC VOLUME] BY AUTOMATED COUNT 92.2 fL 80.0 - 100.0 05/09 Specimen Type: BLOOD No comment entered. Ordering Provider: PLACIDO MIRANDA IN T Report Released Date/Time: Feb 05, 2023 09:31 AM Reporting Lab: [place] [address] [facility] [address] Performing Lab: [address] [address] [facility] CBC MCH [ENTITIC MASS] BY AUTOMATED COUNT 32.3 pg 27.0 - 34.0 05/09 Specimen Type: BLOOD No comment entered. Ordering Provider: PLACIDO MIRANDA IN T Report Released Date/Time: Feb 05, 2023 09:31 AM Reporting Lab: [address] [address] Performing Lab: [address] [address] [facility] CBC MCHC [MASS/VOLUM E] BY AUTOMATED COUNT 35.1 g/dL 33.0 - 36.0 05/09 Specimen Type: BLOOD No comment entered. Ordering Provider: PLACIDO MIRANDA IN T Report Released Date/Time: Feb 05, 2023 09:31 AM Reporting Lab: [address] [address] Performing Lab: [address] [address] [facility] CBC PLATELETS [#/VOLUME] IN BLOOD BY AUTOMATED COUNT 280 10*3/u L 150 - 400 05/09 Specimen Type: BLOOD No comment entered. Ordering Provider: PLACIDO MIRANDA IN T Report Released Date/Time: Feb 05, 2023 09:31 AM Reporting Lab: [address] [address] Performing Lab: [address] [address] [facility] CBC PLATELET MEAN VOLUME [ENTITIC VOLUME] IN BLOOD BY AUTOMATED COUNT 10.2 fL 7.5 - 11.2 05/09 Specimen Type: BLOOD No comment entered. Ordering Provider: PLACIDO MIRANDA IN T Report Released Date/Time: Feb 05, 2023 09:31 AM Reporting Lab: [address] [address] Performing Lab: [address] [address] [facility] CBC ERYTHROCYTE DISTRIBUTIO N WIDTH [RATIO] BY AUTOMATED COUNT 12.4 11.8 - 15.1 05/09 Specimen Type: BLOOD No comment entered. Ordering Provider: PLACIDO MIRANDA IN T Report Released Date/Time: Feb 05, 2023 09:31 AM Reporting Lab: [address] [address] Performing Lab: [facility] [address] [facility] [address] [facility] CBC LYMPHOCYTES /100 LEUKOCYTES IN BLOOD BY AUTOMATED COUNT 30 05/09 Specimen Type: BLOOD No comment entered. Ordering Provider: PLACIDO MIRANDA IN T Report Released Date/Time: Feb 05, 2023 09:31 AM Reporting Lab: [facility] [address] [facility] [address] Performing Lab: [facility] [address] [facility] [address] [facility] CBC MONOCYTES/1 00 LEUKOCYTES IN BLOOD BY AUTOMATED COUNT 10 05/09 Specimen Type: BLOOD No comment entered. Ordering Provider: PLACIDO MIRANDA IN T Report Released Date/Time: Feb 05, 2023 09:31 AM Reporting Lab: [facility] [address] [facility] [address] Performing Lab: [facility] [address] [facility] [address] [facility] CBC NEUTROPHILS /100 LEUKOCYTES IN BLOOD BY AUTOMATED COUNT 55 05/09 Specimen Type: BLOOD No comment entered. Ordering Provider: PLACIDO MIRANDA IN T Report Released Date/Time: Feb 05, 2023 09:31 AM Reporting Lab: [facility] [address] [facility] [address] Performing Lab: [facility] [address] [facility] [address] [facility] CBC EOSINOPHILS /100 LEUKOCYTES IN BLOOD BY AUTOMATED COUNT 4 05/09 Specimen Type: BLOOD No comment entered. Ordering Provider: PLACIDO MIRANDA IN T Report Released Date/Time: Feb 05, 2023 09:31 AM Reporting Lab: [facility] [address] [facility] [address] Performing Lab: [facility] [address] [facility] [address] [facility] CBC BASOPHILS/1 00 LEUKOCYTES IN BLOOD BY AUTOMATED COUNT 1 06/22 /2023 Specimen Type: BLOOD No comment entered. Ordering Provider: PLACIDO MIRANDA IN T Report Released Date/Time: Feb 05, 2023 09:31 AM Reporting Lab: [address] [address] Performing Lab: [address] [address] [facility] CBC LYMPHOCYTES [#/VOLUME] IN BLOOD BY AUTOMATED COUNT 1.88 10*3/u L 0.77 - 4.50 05/09 Specimen Type: BLOOD No comment entered. Ordering Provider: PLACIDO MIRANDA IN T Report Released Date/Time: Feb 05, 2023 09:31 AM Reporting Lab: [address] [address] Performing Lab: [address] [phone] [place] [address] CBC MONOCYTES [#/VOLUME] IN BLOOD BY AUTOMATED COUNT 0.60 10*3/u L 0.19 - 1.50 05/09 Specimen Type: BLOOD No comment entered. Ordering Provider: PLACIDO MIRANDA IN T Report Released Date/Time: Feb 05, 2023 09:31 AM Reporting Lab: [address] [address] Performing Lab: [address] [address] [facility] CBC NEUTROPHILS [#/VOLUME] IN BLOOD BY AUTOMATED COUNT 3.46 10*3/u L 2.10 - 8.00 05/09 Specimen Type: BLOOD No comment entered. Ordering Provider: PLACIDO MIRANDA IN T Report Released Date/Time: Feb 05, 2023 09:31 AM Reporting Lab: [address] [address] Performing Lab: [address] [address] [facility] CBC EOSINOPHILS [#/VOLUME] IN BLOOD BY AUTOMATED COUNT 0.24 10*3/u L 0.00 - 0.60 05/09 Specimen Type: BLOOD No comment entered. Ordering Provider: PLACIDO MIRANDA IN T Report Released Date/Time: Feb 05, 2023 09:31 AM Reporting Lab: [place] [address] [facility] [address] Performing Lab: [place] [address] [facility] [phone] [place] [address] CBC BASOPHILS [#/VOLUME] IN BLOOD BY AUTOMATED COUNT 0.04 10*3/u L 0.00 - 0.20 05/09 Specimen Type: BLOOD No comment entered. Ordering Provider: PLACIDO MIRANDA IN T Report Released Date/Time: Feb 05, 2023 09:31 AM Reporting Lab: [address] [address] Performing Lab: [address] [address] [facility] HGA1C HEMOGLOBIN A1C/HEMOGLO BIN.TOTAL IN BLOOD 5.8 4.0 - 6.0 05/09 Specimen Type: BLOOD Comment: The listed sex of this patient may not be a typical indication for this test. Therefore, reference ranges or interpretiv e criteria listed may not be valid. Clinical correlation suggested. Ordering Provider: TALIB WESTON I Report Released Date/Time: May 09, 2023 11:15 AM Reporting Lab: [facility] [address] [place] [address] Performing Lab: [place] [address] [facility] [phone] [place], [place] [address]E METABOLIC PANEL CREATININE [MASS/VOLUM E] IN SERUM OR PLASMA 1.11 mg/dL 0.7 - 1.3 05/09 Specimen Type: PLASMA Comment: No hemolysis noted. Ordering Provider: TALIB WESTON I Report Released Date/Time: May 09, 2023 11:15 AM Reporting Lab: [facility] [address] [place], [place] [phone] Performing Lab: [facility] [address] [facility] [address] [facility] COMPREHEN SIVE METABOLIC PANEL UREA NITROGEN [MASS/VOLUM E] IN SERUM OR PLASMA 18 mg/dL 9 - 25 05/09 Specimen Type: PLASMA Comment: No hemolysis noted. Ordering Provider: TALIB WESTON I Report Released Date/Time: May 09, 2023 11:15 AM Reporting Lab: [facility] [address] [place] [phone] Performing Lab: [address] [address] [facility] COMPREHEN SIVE METABOLIC PANEL GLUCOSE [MASS/VOLUM E] IN SERUM OR PLASMA 101 mg/dL 72 - 99 05/09 H Specimen Type: PLASMA Comment: No hemolysis noted. Ordering Provider: TALIB WESTON I Report Released Date/Time: May 09, 2023 11:15 AM Reporting Lab: [facility] [address] [place] [phone] Performing Lab: [facility] [address] [place] [phone] [facility] COMPREHEN SIVE METABOLIC PANEL SODIUM [MOLES/VOLU ME] IN SERUM OR PLASMA 134 meq/L 136 - 145 05/09 L Specimen Type: PLASMA Comment: No hemolysis noted. Ordering Provider: TALIB WESTON I Report Released Date/Time: May 09, 2023 11:15 AM Reporting Lab: [facility] [address] [place] [phone] Performing Lab: [facility] [address] [place] [phone] [facility] COMPREHEN SIVE METABOLIC PANEL POTASSIUM [MOLES/VOLU ME] IN SERUM OR PLASMA 4.6 meq/L 3.5 - 5 05/09 Specimen Type: PLASMA Comment: No hemolysis noted. Ordering Provider: TALIB WESTON I Report Released Date/Time: May 09, 2023 11:15 AM Reporting Lab: [facility] [address] [facility] [address] Performing Lab: [facility] [address] [facility] [address] [facility] COMPREHEN SIVE METABOLIC PANEL CHLORIDE [MOLES/VOLU ME] IN SERUM OR PLASMA 106 meq/L 98 - 107 05/09 Specimen Type: PLASMA Comment: No hemolysis noted. Ordering Provider: TALIB WESTON I Report Released Date/Time: May 09, 2023 11:15 AM Reporting Lab: [facility] [address] [place] [phone] Performing Lab: [address] [address] [facility] COMPREHEN SIVE METABOLIC PANEL CARBON DIOXIDE, TOTAL [MOLES/VOLU ME] IN SERUM OR PLASMA 19 meq/L 22 - 31 05/09 L Specimen Type: PLASMA Comment: No hemolysis noted. Ordering Provider: TALIB WESTON I Report Released Date/Time: May 09, 2023 11:15 AM Reporting Lab: [facility] [address] [facility] [address] Performing Lab: [facility] [address] [place] [phone] [facility] COMPREHEN SIVE METABOLIC PANEL CALCIUM [MASS/VOLUM E] IN SERUM OR PLASMA 9.2 mg/dL 8.4 - 10.4 05/09 Specimen Type: PLASMA Comment: No hemolysis noted. Ordering Provider: TALIB WESTON I Report Released Date/Time: May 09, 2023 11:15 AM Reporting Lab: [facility] [address] [facility] [address] Performing Lab: [facility] [address] [place] [phone] [facility] COMPREHEN SIVE METABOLIC PANEL PROTEIN [MASS/VOLUM E] IN SERUM OR PLASMA 7.7 g/dL 6 - 8.6 05/09 Specimen Type: PLASMA Comment: No hemolysis noted. Ordering Provider: TALIB WESTON I Report Released Date/Time: May 09, 2023 11:15 AM Reporting Lab: [facility] [address] [facility] [address] Performing Lab: [facility] [address] [facility] [address] [facility] COMPREHEN SIVE METABOLIC PANEL ALBUMIN [MASS/VOLUM E] IN SERUM OR PLASMA 4.3 g/dL 3.4 - 5 05/09 Specimen Type: PLASMA Comment: No hemolysis noted. Ordering Provider: TALIB WESTON I Report Released Date/Time: May 09, 2023 11:15 AM Reporting Lab: [facility] [address] [facility] [address] Performing Lab: [facility] [address] [facility] [address] [facility] COMPREHEN SIVE METABOLIC PANEL BILIRUBIN.T OTAL [MASS/VOLUM E] IN SERUM OR PLASMA 0.5 mg/dL 0.2 - 1.2 05/09 Specimen Type: PLASMA Comment: No hemolysis noted. Ordering Provider: TALIB WESTON I Report Released Date/Time: May 09, 2023 11:15 AM Reporting Lab: [facility] [address] [place] [phone] Performing Lab: [facility] [address] [facility] [address] [facility] COMPREHEN SIVE METABOLIC PANEL ALKALINE PHOSPHATASE [ENZYMATIC ACTIVITY/VO LUME] IN SERUM OR PLASMA 68 U/L 40 - 150 05/09 Specimen Type: PLASMA Comment: No hemolysis noted. Ordering Provider: TALIB WESTON I Report Released Date/Time: May 09, 2023 11:15 AM Reporting Lab: [facility] [address] [place] [phone] Performing Lab: [facility] [address] [facility] [address] [facility] COMPREHEN SIVE METABOLIC PANEL ASPARTATE AMINOTRANSF ERASE [ENZYMATIC ACTIVITY/VO LUME] IN SERUM OR PLASMA 20 U/L 5 - 34 05/09 Specimen Type: PLASMA Comment: No hemolysis noted. Ordering Provider: TALIB WESTON I Report Released Date/Time: May 09, 2023 11:15 AM Reporting Lab: [facility] [address] [facility] [address] Performing Lab: [address] [address] [facility] COMPREHEN SIVE METABOLIC PANEL ALANINE AMINOTRANSF ERASE [ENZYMATIC ACTIVITY/VO LUME] IN SERUM OR PLASMA 36 U/L 8 - 40 05/09 Specimen Type: PLASMA Comment: No hemolysis noted. Ordering Provider: TALIB WESTON I Report Released Date/Time: May 09, 2023 11:15 AM Reporting Lab: [address] [address] Performing Lab: [address] [phone] [place] [address] COMPREHEN SIVE METABOLIC PANEL GLOMERULAR FILTRATION RATE/1.73 SQ M.PREDICTED [VOLUME RATE/AREA] IN SERUM, PLASMA OR BLOOD BY CREATININE- BASED FORMULA (CKD-EPI 2020) 77.5 05/09 Specimen Type: PLASMA Comment: No hemolysis noted. 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 Vital Sign Value Date Comments Source SYSTOLIC BLOOD PRESSURE 134 06/22/2024 10:49:05 [facility] DIASTOLIC BLOOD PRESSURE 87 06/22/2024 10:49:05 [facility] PULSE OXIMETRY 96 06/22/2024 10:49:05 [facility] WEIGHT 234.2 06/22/2024 10:49:05 [facility] BMI 36 kg/m2 06/22/2024 10:49:05 [facility] PAIN 5 06/22/2024 10:49:05 [facility] HEIGHT 68 06/22/2024 10:49:05 [facility] TEMPERATURE 98.5 06/22/2024 10:49:05 [facility] PULSE 65 06/22/2024 10:49:05 [facility] RESPIRATION 16 06/22/2024 10:49:05 [facility] Encounters Combined list of: 1) Encounters from Department of [facility] Affairs facilities going backup to the last 18 months, not all [place] inpatient encounters are included; 2) Encounters from the Department of [facility] facilities going backup to 280 months. Location Location Details Encounter Type Encounter Number Reason For Visit Attending Provider ADM Date DC Date Status Disposition Source [facility] Outpatient Encounter [id number] SANNA SANTANA 09/05 [facility] N [facility] Outpatient Encounter [id number] 09/05 [facility] Outpatient Encounter [id number] 09/09 [facility] OFFICE O/P EST MOD 30 MIN [id number] Diagnos is: ICD-10- CM 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 PSYTX W PT W E/M 30 MIN [id number] Diagnos is: ICD-10- CM F43.12 Post-tr aumatic stress disorde r, chronic LUCIANO,MARQUISE D 01/14 [facility] Outpatient Encounter [id number] CK RANDALL 01/27 [facility] Outpatient Encounter [id number] 01/30 [facility] OFFICE O/P EST MOD 30 MIN [id number] Diagnos is: ICD-10- CM E66.9 Obesity , unspeci fied TRISTA,NID HI 01/30 [facility] Outpatient Encounter [id number] 01/30 [facility] HC PRO PHONE CALL 21-30 MIN [id number] Diagnos is: ICD-10- CM Z56.0 Unemplo yment, unspeci fied IRVING WEBER 02/02 [facility] OFFICE O/P EST HI 40 MIN [id number] Diagnos is: ICD-10- CM F43.12 Post-tr aumatic stress disorde r, chronic LUCIANO,MARQUISE D 03/04 [facility] OFFICE O/P EST MOD 30 MIN [id number] Diagnos is: ICD-10- CM F43.12 Post-tr aumatic stress disorde r, chronic LUCIANO,MARQUISE D 04/02 [facility] [id number] 04/03 [facility] OFFICE O/P EST MOD 30 MIN [id number] Diagnos is: ICD-10- CM E29.1 Testicu lar hypofun JIM Gillette ITZEL Mac 06/22 [facility] Outpatient Encounter [id number] CK RANDALL 06/24 [facility] OFFICE O/P EST MOD 30 MIN [id number] Diagnos is: ICD-10- CM F43.12 Post-tr aumatic stress disorde r, chronic LUCIANOMARQUISE D 06/25 [facility] Outpatient Encounter [id number] TRISTANID HI 08/19 [facility] Outpatient Encounter [id number] 09/21 [facility] SYNCH AUDIO-ONLY EST HIGH 40 [id number] Diagnos is: ICD-10- CM F43.12 Post-tr aumatic stress disorde r, chronic LUCIANO,MARQUISE D 12/03 [facility] Outpatient Encounter [id number] 12/04 [facility] NQHP OL DIG ASSMT&MGMT 5-10 [id number] Diagnos is: ICD-10- CM E29.1 Testicu lar hypofun ction SURYA HEDRICK 12/28 [facility] Outpatient Encounter [id number] SURYA HEDRICK 12/28 [facility] OFFICE O/P EST MOD 30 MIN [id number] Diagnos is: ICD-10- CM E29.1 Testicu lar hypofun ction JIM MIRANDA T 01/11 [facility] Outpatient Encounter [id number] 01/12 [facility] Social History Combined list of available smoking, tobacco, and other social history from Department of Defense and [facility] facilities. Social History Type Response Date Comment Sourc e Tobacco smoking status NHIS VA-TOBACCO NEVER USED 08/19/2024 [facility] History of tobacco use VA-TOBACCO NEVER USED 05/09/2023 [facility] History of tobacco use VA-TOBACCO NEVER USED 02/06/2022 [facility] History of tobacco use VA-TOBACCO NEVER USED 02/07/2021 [facility] History of tobacco use VA-TOBACCO NEVER USED 07/22/2018 [facility] History of tobacco use TOBACCO USER OFFERED MEDS 12/13/2017 [facility] Plan of Care List of future care activities from Department of Veterans Affairs facilities. Additional future care activities may be listed in the Assessment and Plan section. Date/Time Care Activity Care Activity Detail Facili ty 02/26/2025 AMBULATORY - PSYCHIATRY AMBULATORY - PSYC HIATRY [facility]
--- NOTE | 2025-02-16 14:15 | NEURO_ITS ---
Impression: # Complains of numbness of hands. 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 ? # Bilateral Carpal Tunnel Syndrome of moderate degree. ? 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 ? # Normal needle/EMG exam. Nerve Conduction Studies Anti Sensory Summary Table ?Stim Site NR Peak (ms) P-T Amp (?V) Site1 Site2 Delta-P (ms) Dist (cm) Dru (m/s) Left Median Anti Sensory (2-3nd Digit) Wrist ? 5.1 29.9 Wrist 2-3nd Digit 5.1 14.0 27 Wrist ? 5.1 12.5 Wrist 2-3nd Digit 5.1 14.0 27 Right Median Anti Sensory (2-3nd Digit) Wrist ? 4.9 16.2 Wrist 2-3nd Digit 4.9 14.0 29 Wrist ? 4.6 37.4 Wrist 2-3nd Digit 4.9 14.0 29 Left Radial Anti Sensory (Base 1st Digit) Wrist ? 2.0 16.1 Wrist Base 1st Digit 2.0 0.0 Right Radial Anti Sensory (Base 1st Digit) Wrist ? 2.6 6.0 Wrist Base 1st Digit 2.6 0.0 Left Ulnar Anti Sensory (5th Digit) Wrist ? 2.9 25.5 Wrist 5th Digit 2.9 14.0 48 Right Ulnar Anti Sensory (5th Digit) Wrist ? 2.7 28.8 Wrist 5th Digit 2.7 14.0 52 Motor Summary Table ?Stim Site NR Onset (ms) O-P Amp (mV) Site1 Site2 Delta-0 (ms) Dist (cm) Dru (m/s) Left Median Motor (Abd Poll Brev) Wrist ? 4.7 1.1 Elbow Wrist 5.6 29.0 52 Elbow ? 10.3 2.4 Right Median Motor (Abd Poll Brev) Wrist ? 4.7 3.1 Elbow Wrist 5.7 27.0 47 Elbow ? 10.4 2.8 Left Ulnar Motor (Abd Dig Minimi) Wrist ? 2.8 6.4 A Elbow Wrist 5.7 31.0 54 A Elbow ? 8.5 4.8 B Elbow Wrist 4.1 23.0 56 B Elbow ? 6.9 4.3 Right Ulnar Motor (Abd Dig Minimi) Wrist ? 2.3 5.4 A Elbow Wrist 5.7 30.0 53 A Elbow ? 8.0 4.5 B Elbow Wrist 4.0 22.0 55 B Elbow ? 6.3 4.2 F Wave Studies ?NR F-Lat (ms) L-R F-Lat (ms) Left Median (Mrkrs) (Abd Poll Brev) ? 31.20 0.94 Right Median (Mrkrs) (Abd Poll Brev) ? 30.26 0.94 Left Ulnar (Mrkrs) (Abd Dig Min) ? 30.59 1.07 Right Ulnar (Mrkrs) (Abd Dig Min) ? 29.52 1.07 EMG ?Side Muscle Nerve Root Ins Act Fibs Amp Dur Recrt Comment Right 1stDorInt Ulnar C8-T1 Nml Nml Nml Nml Nml Right Ext Indicis Radial (Post Int) C7-8 Nml Nml Nml Nml Nml Right Ext Digitorum Radial (Post Int) C7-8 Nml Nml Nml Nml Nml Right BrachioRad Radial C5-6 Nml Nml Nml Nml Nml Right PronatorTeres Median C6-7 Nml Nml Nml Nml Nml Right Abd Poll Brev Median C8-T1 Nml Nml Nml Nml Nml Right ABD Dig Min Ulnar C8-T1 Nml Nml Nml Nml Nml Right FlexPolLong Median (Ant Int) C7-8 Nml Nml Nml Nml Nml Right Abd Poll Long Radial (Post Int) C7-8 Nml Nml Nml Nml Nml Left 1stDorInt Ulnar C8-T1 Nml Nml Nml Nml Nml Left Ext Indicis Radial (Post Int) C7-8 Nml Nml Nml Nml Nml Left Ext Digitorum Radial (Post Int) C7-8 Nml Nml Nml Nml Nml Left BrachioRad Radial C5-6 Nml Nml Nml Nml Nml Left PronatorTeres Median C6-7 Nml Nml Nml Nml Nml Left Abd Poll Brev Median C8-T1 Nml Nml Nml Nml Nml Left ABD Dig Min Ulnar C8-T1 Nml Nml Nml Nml Nml MTDD
== END 2025-02-16 13:03 | disposition home or self-care (01) ==
PROVIDERS: PCP Internal Medicine; Visit Provider Nurse Practitioner
DX: R20.0 Anesthesia of skin (principal); G56.23 Lesion of ulnar nerve, bilateral upper limbs; G56.03 Carpal tunnel syndrome, bilateral upper limbs
CPT/HCPCS: 95886; 95911

== ENCOUNTER 2025-09-20 08:21 | Outpatient (CLI) | payer BC, SELFPAY ==
--- OUTSIDE RECORDS SUMMARY | 2025-09-20 08:30 | XMS_ITS | Clinical Summary ---
Author Organization [facility] Address [address] [place] [address] Care Team Providers Care Factory Manager Name Role Phone Geoffrey Reeves Primary Care Provider [phone] Allergies No known active allergies Medications HYDROcodone-acet [...] A M CDT Height 167.6 cm (5' 6) 04/16/2021 12:04 AM CDT Body Mass Index 37.04 04/16/2021 12:04 AM CDT Plan of Treatment Health Maintenance Due Date Last Done Comments Colorectal Cancer Screening Colonoscopy (10 Years) 1965 Annual Physical 1968 Hepatitis C 1983 DTaP, Tdap and Td Vaccines ( 1 - Tdap) 1984 Pneumococcal Vaccine: 50+ Ye ars (1 of 1 - PCV) 2015 Zoster Vaccines (1 of 2) 2015 COVID-19 Vaccine (1 - 2024-2 6 season) 2025 Influenza Adult (#1) 2025 Hepatitis A Vaccines Aged Out No long er eligible based on patient's age to complete this topic Meningococcal B Vaccine Aged Out No l onger eligible based on patient's age to complete this topic Meningococcal Vaccine Aged Out No geovanni jason eligible based on patient's age to complete this topic RSV Immunizations Under 20 Months Aged Out No longer eligible based on patient's age to complete this topic Insurance [facility] Care Teams Factory Manager Relationship Specialty Start Date End Date Geoffrey Reeves DO PCP - General 03/11/15
--- OUTSIDE RECORDS SUMMARY | 2025-09-20 08:31 | XMS_ITS | Patient Health Record ---
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 [employer] Name Role Phone Jorge Mena DO Primary Care Provider Chet Zuniga Unavailable [phone] Allergies No Known Allergies Reason For Referral No Information Medications Medication SIG (Take, Route, Frequency, Duration) Notes Start Date End Date Status Zolpidem Tartrate 10 MG Tablet 1 tablet at bedtime Oral once a day; Duration: 30 days As needed 08/30/2025 02/26/2026 Active Testosterone 1.62 % Gel Transdermal; Dur ation: 30 Days Active Social History Tobacco Use: Social History Observation Description Date Details (start date - stop date) Unknown Sex Assigned At : Social History Observation Description Sex Assigned At Female Social History Miscellaneous: Social Info Question Answer Notes Advance Care Planning Are you your own decision-maker Yes Do you have Power of Service Desk Agent for Health or [facility]? Yes Do you have a power of civil litigation attorney for health? Yes Do you have power of civil litigation attorney for Medical ? Yes If yes, then please bring the POA paperwork so that we can upload it. Yes Tobacco Use: Social Info Question Answer Notes Tobacco Control (Standard) Tobacco use: Uses tobacco in other forms Additional Details Category Social Info Options Details Migrated Social History Migrated Social History Alcohol Intake: Occasional 12/13/2023,Tobacco Years: Never smoker 07/12/2022 Problems Problem Type SNOMED Code ICD Code Onset Dates Problem Status W/U Status Risk Notes Problem Mild recurrent major depression (24029607) Major depressive disorder, recurrent, mild (F33.0) 4 Active confirmed Problem Generalized anxiety disorder (70931751) Generalized anxiety disorder (F41.1) 4 Active confirmed Problem Posttraumatic stress disorder (36390146) Post-traumatic stress disorder, chronic (F43.12) 4 Active confirmed Problem Restless legs syndrome (35849800) Restless legs syndrome (G25.81) 4 Active confirmed Problem Insomnia (559025043) Other insomnia (G47.09) 4 Active confirmed Problem Periodic limb movement disorder (115635559) Periodic limb movement disorder (G47.61) 4 Active confirmed Problem Major depression in remission (03032465) Major depression in remission (F32.5) Active confirmed Vital Signs Heart Rate 65 /min 08/30/2025 Height-cm 170.18 cm 08/30/2025 Blood pressure diastolic 85 mm Hg 08/30/2025 Weight-kg 94.35 kg 08/30/2025 Height 67.00 in 08/30/2025 Blood pressure systolic 134 mm Hg 08/30/2025 Weight 208 lbs 08/30/2025 BMI 32.57 kg/m2 08/30/2025 Encounters Encounter Location Date Provider Diagnosis [facility] [address] [address] 11/16/2024 Chet Howe Post-traumatic stres s disorder, chronic F43.12 ; Restless legs syndrome G25.81 ; Other insomnia G47.09 ; Generalized anxiety disorder F41.1 and Major depressive disorder, recurrent, mild F33.0 [facility] [place] [id number] [facility] [address] [address] 02/15/2025 Chet Howe Major depressive disorder, recurrent, mild F33.0 ; Other insomnia G47.09 ; Nicotine use Z72.0 ; Generalized anxiety disorder F41.1 ; Post-traumatic stress disorder, chronic F43.12 ; Encounter for screening for depression Z13.31 ; Encounter for screening for cardiovascular disorders Z13.6 and Restless legs syndrome G25.81 [facility] [address] [address] 05/17/2025 Chte Howe Encounter for screen ing for depression Z13.31 ; Major depressive disorder, recurrent, mild F33.0 ; Other insomnia G47.09 ; Nicotine use Z72.0 ; Generalized anxiety disorder F41.1 ; Post-traumatic stress disorder, chronic F43.12 ; Encounter for screening for cardiovascular disorders Z13.6 and Restless legs syndrome G25.81 [facility] [address] [place] [address] [place] [address] 08/30/2025 Chet Howe Major depressive disorder, recurrent, mild F33.0 ; Other insomnia G47.09 ; Nicotine use Z72.0 ; Generalized anxiety disorder F41.1 ; Post-traumatic stress disorder, chronic F43.12 and Restless legs syndrome G25.81 Assessments Encounter [...] he is slipping or experiencing any issues. 02/15/2025 Major depressive disorder, recurrent, mild (ICD-10 - F33.0) stable 05/17/2025 Encounter for screening for depression (ICD-10 - Z13.31) 08/30/2025 Major depressive disorder, recurrent, mild (ICD-10 - F33.0) stable 08/30/2025 Other insomnia (ICD-10 - G47.09) zolpidem 10mg hs prn 08/30/2025 Nicotine use (ICD-10 - Z72.0) 05/17/2025 Major depressive disorder, recurrent, mild (ICD-10 - F33.0) stable 02/15/2025 Other insomnia (ICD-10 - G47.09) zolpidem 10mg hs prn 11/16/2024 Restless legs syndrome (ICD-10 - G25.81) [...] he is slipping or experiencing any issues. 05/17/2025 Other insomnia (ICD-10 - G47.09) zolpidem 10mg hs prn 02/15/2025 Nicotine use (ICD-10 - Z72.0) 08/30/2025 Generalized anxiety disorder (ICD-10 - F41.1) 08/30/2025 Post-traumatic stress disorder, chronic (ICD-10 - F43.12) stable 05/17/2025 Nicotine use (ICD-10 - Z72.0) 11/16/2024 Generalized anxiety disorder (ICD-10 - F41.1) [...] he is slipping or experiencing any issues. 02/15/2025 Generalized anxiety disorder (ICD-10 - F41.1) 11/16/2024 Major depressive disorder, recurrent, mild (ICD-10 [...] he is slipping or experiencing any issues. 02/15/2025 Post-traumatic stress disorder, chronic (ICD-10 - F43.12) stable 05/17/2025 Generalized anxiety disorder (ICD-10 - F41.1) 08/30/2025 Restless legs syndrome (ICD-10 - G25.81) 05/17/2025 Post-traumatic stress disorder, chronic (ICD-10 - F43.12) stable 02/15/2025 Encounter for screening for depression (ICD-10 - Z13.31) 02/15/2025 Encounter for screening for cardiovascular disorders (ICD-10 - Z13.6) 05/17/2025 Encounter for screening for cardiovascular disorders (ICD-10 - Z13.6) 05/17/2025 Restless legs syndrome (ICD-10 - G25.81) 02/15/2025 Restless legs syndrome (ICD-10 - G25.81) 02/15/2025 Easton Emmanuel Gilbert presents with recent sleep disturbances over the [...] efforts have been made to correct them. 05/17/2025 Easton Hunt presents with fluctuating mood, experiencing periods of melancholy and sadness, but reports having more good days than bad days overall. Mood Disorder Assessment: Patient reports experiencing fluctuating mood with periods of melancholy and sadness. He describes having more good days than bad days, but struggles with occasional extreme mood swings. The patient demonstrates insight into his condition, stating he can talk his way out of it. There's no indication of persistent depressive symptoms or suicidal ideation. The patient also expresses some social anxiety or mistrust, preferring to stay at home rather than going out. Plan: - Continue current medication regimen (specific medication not mentioned) - Encourage ongoing use of coping strategies, such as self-talk - Follow up in 4 months Sleep Disturbance Assessment: Patient reports improvement in sleep patterns with current medication. He describes himself as a typical sleeper now, whereas he never slept before. Patient reports a recent instance of sleeping for 8.5 hours without interruption or use of alcohol, waking feeling refreshed. Plan: - Continue current sleep medication - Monitor for continued efficacy and any side effects the note is transcribed using speech recognition software. It is a reflection of a visit with the patient. It might have some inaccuracy, including medication names and transcribing errors, though efforts have been made to correct them. 08/30/2025 Easton Hunt reports being in a good mood and functioning well, with concerns about [facility] provider questioning his zolpidem prescriptions and history of substance use disorder in recovery. Substance use disorder in recovery Assessment: Patient reports significant recovery milestone, stating this was the first day that I hadn't drank and done drugs in almost 30 years when initially seeking treatment. He experienced withdrawal symptoms including sweating and delirium tremens at treatment initiation. Patient demonstrates sustained recovery with improved quality of life, reporting he can now function without cowering on the couch and is actually living my life again and enjoying it. He expresses renewed capacity for excitement and emotional engagement that was for a long time. Plan: - Continue current treatment approach supporting sustained recovery Sleep disorder Assessment: Patient currently prescribed zolpidem for sleep management. Recent concern arose at [place] appointment where provider questioned dual prescribing of zolpidem from this clinic and Ambien XR from [place], creating patient distress about treatment coordination. Plan: - Continue zolpidem - Schedule follow-up in 4 months, with consideration to extend to 5 months if stable the note is transcribed using speech recognition software. It is a reflection of a visit with the patient. It might have some inaccuracy, including medication names and transcribing errors, though efforts have been made to correct them. Plan Of Treatment Next Appt Details Provider Name:Chet voss, 12/31/2025 04:00:00 PM, [address], [facility] [address], [place], [address], Insurance Providers Payer Name Payer Address Payer Phone Subscriber Number Group Number Insured Name Patient Relationship to Insured Coverage Start Date Coverage End Date [facility] Ppo [address] [place] [address] [id number] EMMANUEL HUNT Self - patient is the insured Medical (General) History Medical History History ICD Code Problems: Chronic post-traumatic stress disorder Generalized anxiety disorder Mild recurrent major depression Periodic limb movement disorder Persistent insomnia Posttraumatic stress disorder Psychophysiologic insomnia Restless legs 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 On December 03, 2024, during a synchronous audio-only consultation, the patient was diagnosed with chronic post-traumatic stress disorder. The patient had outpatient encounters on December 04, 2024, and December 28, 2024, but no new health issues were reported. On December 28, 2024, during a non-qualified health professional online digital assessment and management visit, the patient was diagnosed with testicular hypofunction. This condition was again noted during an office outpatient established moderate 30-minute visit on January 11, 2025. The patient had another outpatient encounter on January 12, 2025, with no new problems reported. undefined
[2025-09-20 13:12] LABS: Alanine Aminotransferase 34 U/L (6-50); Albumin Level 4.4 g/dL (3.5-5.1); Alkaline Phosphatase 63 U/L (38-126); Anion Gap 6 mmol/L (4-12); Aspartate Amino Transferase 36 U/L (17-59); Bilirubin,Total 0.9 mg/dL (0.2-1.3); Blood Urea Nitrogen 19 mg/dL (9-20); Calcium 9.2 mg/dL (8.4-10.2); Carbon Dioxide 31 mmol/L (22-30); Chloride 101 mmol/L (98-107); Cholesterol 201 mg/dL (0-200); Estimated Glomerular Filt Rate > 60; Glucose 90 mg/dL (65-110); HDL Direct 43 mg/dL; Potassium 4.5 mmol/L (3.4-5.0); Sodium 138 mmol/L (137-145); Total Protein 7.8 g/dL (6.3-8.2); Triglycerides 197 mg/dL (<150)
[2025-09-20 13:14] LABS: Hematocrit 50.7 % (42.0-52.0); Hemoglobin 16.8 g/dL (14.0-18.0); Immature Granulocyte Percent A 0.4 % (0-0.5); Lymphocytes Absolute Auto 1.38 K/mm3 (0.9-3.2); Mean Corpuscular HGB Conc 33.1 g/dl (32-36); Mean Corpuscular Hemoglobin 30.6 pg (26-34); Mean Corpuscular Volume 92.3 fl (80-100); Nucleated Red Blood Cells Absolute Auto 0.000 K/mm3 (0.0-0.012); Nucleated Red Blood Cells Perc 0.0 % (0.0-0.2); Platelet Count Result 257 k/mm3 (150-375); Red Blood Count 5.49 M/mm3 (4.6-6.20); White Blood Count 5.1 K/mm3 (4.5-10.0)
[2025-09-20 13:50] LABS: Prostate Specific Antigen 1.3 ng/mL (< OR = 4.0); Thyroid Stimulating Hormone 2.620 uIU/mL (0.465-4.680)
[2025-09-20 14:25] LABS: Vitamin B12 559.0 pg/mL (239-931)
[2025-09-23 05:08] LABS: Free Testosterone (Direct) 7.6 pg/mL (7.2-24.0)
== END 2025-09-20 08:22 | disposition home or self-care (01) ==
LOC: ANHGOSHLAB 08:22
DX: E78.5 Hyperlipidemia, unspecified (principal); Z13.29 Encounter for screening for other suspected endocrine disorder; Z13.0 Encounter for screening for diseases of the blood and blood-forming organs and certain disorders involving the immune mechanism; Z13.228 Encounter for screening for other metabolic disorders; R53.83 Other fatigue; Z12.5 Encounter for screening for malignant neoplasm of prostate; Z13.220 Encounter for screening for lipoid disorders; E55.9 Vitamin D deficiency, unspecified
CPT/HCPCS: 36415; 80053; 80061; 82172; 82306; 82607; 82746; 84153; 84402; 84403; 84443; 85025